=== PATIENT | female | born 1965 | race Hispanic/Latino ===

== ENCOUNTER 2019-01-22 18:21 | Emergency (ER) | payer BC ==
[~2019-01-22] VITALS: Ht 157.5 cm; Wt 88.0 kg
--- OUTSIDE RECORDS SUMMARY | 2019-01-22 18:24 | XMS REPORT ---
Author Author [facility] Address Unknown Phone Unavailable Care Team Providers Care Kindergarten Instructional Assistant Name Role Phone ESTELLA RUDI TORREZ Unavailable Unavailable DAVE ALEXANDER Unavailable Unavailable OFORDEMEMIKE Unavailable Unavailable Alexandria TOM Unavailable Unavailable Problems This patient has no known problems. Allergies, Adverse Reactions, Alerts This patient has no known allergies or adverse reactions. Medications This patient has no known medications. Encounters Start Date/Time End Date/Time Encounter Type Admission Type Attending Clinicians Care Facility Care Department Encounter ID 2018-05-30 15:27:00 2018-05-30 15:27:00 Outpatient [facility] [id number] 2018-05-12 15:36:00 2018-05-12 15:36:00 Outpatient [facility] 7514 Results Test Description Test Time Test Comments Text Results Atomic Results Result Comments U/S, PELVIS 2017-12-26 00:37:00 Reason for exam:->LLQ painReason for exam:->post menopausal vag bleeding FINAL REPORT U/S, PELVIS, U/S, ENDOVAGINAL (EV), U/S, DUPLEX, DOPPLER CLINICAL INDICATION: LLQ painpost menopausal vag bleeding COMPARISON: None TECHNIQUE: Ultrasound imaging of the pelvis was performed transabdominally through a distended urinary bladder followed by transvaginal examination postvoid. Color and spectral Doppler evaluation was also performed. FINDINGS: Uterus Orientation: Anteverted Size: 7.1 x 5.2 x 6.3 cm Masses: None Endometrial thickness: 0.8 cm. Cervix: Not well seen. Adnexa: Right Ovary:Not identified. Left Ovary: Size: 1.7 x 2.0 x 1.5 cm.cm. Echogenicity: Normal. There is a 2.4 x 1.0 x 1.6 cm paraovarian simple cyst. Vascular flow: Preserved Free fluid: None. Additional findings: None IMPRESSION: Endometrial complex is thickened measuring up to 0.8 cm. Recommend further evaluation with endometrial sampling in this postmenopausal patient with vaginal bleeding. Simple left paraovarian cyst measuring up to 2.4 cm. Recommend follow-up ultrasound in one year to ensure stability. Signed: Gallo Ayala Verified Date/Time: 12/26/2017 00:37:52 Reading Location: [address] Transitional Reading Room U/S, ENDOVAGINAL (EV) 2017-12-26 00:37:00 Reason for exam:->post menopausal bleedReason for exam:->LLQ pain FINAL REPORT U/S, PELVIS, U/S, ENDOVAGINAL (EV), U/S, DUPLEX, DOPPLER CLINICAL INDICATION: LLQ painpost menopausal vag bleeding COMPARISON: None TECHNIQUE: Ultrasound imaging of the pelvis was performed transabdominally through a distended urinary bladder followed by transvaginal examination postvoid. Color and spectral Doppler evaluation was also performed. FINDINGS: Uterus Orientation: Anteverted Size: 7.1 x 5.2 x 6.3 cm Masses: None Endometrial thickness: 0.8 cm. Cervix: Not well seen. Adnexa: Right Ovary:Not identified. Left Ovary: Size: 1.7 x 2.0 x 1.5 cm.cm. Echogenicity: Normal. There is a 2.4 x 1.0 x 1.6 cm paraovarian simple cyst. Vascular flow: Preserved Free fluid: None. Additional findings: None IMPRESSION: Endometrial complex is thickened measuring up to 0.8 cm. Recommend further evaluation with endometrial sampling in this postmenopausal patient with vaginal bleeding. Simple left paraovarian cyst measuring up to 2.4 cm. Recommend follow-up ultrasound in one year to ensure stability. Signed: Gallo Ayala Verified Date/Time: 12/26/2017 00:37:52 Reading Location: [address] Transitional Reading Room U/S, DUPLEX, DOPPLER 2017-12-26 00:37:00 Reason for exam:->llq painReason for exam:->post menopausal bleed FINAL REPORT U/S, PELVIS, U/S, ENDOVAGINAL (EV), U/S, DUPLEX, DOPPLER CLINICAL INDICATION: LLQ painpost menopausal vag bleeding COMPARISON: None TECHNIQUE: Ultrasound imaging of the pelvis was performed transabdominally through a distended urinary bladder followed by transvaginal examination postvoid. Color and spectral Doppler evaluation was also performed. FINDINGS: Uterus Orientation: Anteverted Size: 7.1 x 5.2 x 6.3 cm Masses: None Endometrial thickness: 0.8 cm. Cervix: Not well seen. Adnexa: Right Ovary:Not identified. Left Ovary: Size: 1.7 x 2.0 x 1.5 cm.cm. Echogenicity: Normal. There is a 2.4 x 1.0 x 1.6 cm paraovarian simple cyst. Vascular flow: Preserved Free fluid: None. Additional findings: None IMPRESSION: Endometrial complex is thickened measuring up to 0.8 cm. Recommend further evaluation with endometrial sampling in this postmenopausal patient with vaginal bleeding. Simple left paraovarian cyst measuring up to 2.4 cm. Recommend follow-up ultrasound in one year to ensure stability. Signed: Gallo Ayala Verified Date/Time: 12/26/2017 00:37:52 Reading Location: [address] Transitional Reading Room C METABOLIC PANEL 2017-12-25 22:54:00 SODIUM (BEAKER) (test brhd=358) 140 meq/L 136-145 POTASSIUM (BEAKER) (test onqv=830) 3.9 meq/L 3.5-5.1 Specimen slightly hemolyzed CHLORIDE (BEAKER) (test lhzb=112) 108 meq/L 98-107 CO2 (BEAKER) (test mtqa=732) 25 meq/L 22-29 BLOOD UREA NITROGEN (BEAKER) (test gukl=013) 19 mg/dL 7-21 CREATININE (BEAKER) (test pqbb=554) 0.75 mg/dL 0.57-1.25 Specimen slightly hemolyzed GLUCOSE RANDOM (BEAKER) (test hmpl=975) 112 mg/dL 70-105 CALCIUM (BEAKER) (test nprt=135) 9.3 mg/dL 8.4-10.2 EGFR (BEAKER) (test dqzn=8016) 81 mL/min/1.73 sq m ESTIMATED GFR IS NOT ACCURATE CREATININE CLEARANCE IN PREDICTING GLOMERULAR FILTRATION RATE. ESTIMATED GFR IS NOT APPLICABLE FOR DIALYSIS PATIENTS. RAPID STREP A [id number] 22:48:00* Test Item Value Reference Range Comments STREP A ANTIGEN (BEAKER) (test fuxr=880) Negative Negative CBC W/PLT COUNT & AUTO [id number] 22:44:00* Test Item Value Reference Range Comments WHITE BLOOD CELL COUNT (BEAKER) (test ngwu=975) 7.7 K/ L 3.5-10.5 RED BLOOD CELL COUNT (BEAKER) (test djxz=181) 4.19 M/ L 3.93-5.22 HEMOGLOBIN (BEAKER) (test gcjc=048) 14.3 GM/DL 11.2-15.7 HEMATOCRIT (BEAKER) (test jffe=172) 41.6 % 34.1-44.9 MEAN CORPUSCULAR VOLUME (BEAKER) (test iiaz=795) 99.3 fL 79.4-94.8 MEAN CORPUSCULAR HEMOGLOBIN (BEAKER) (test dvue=631) 34.1 pg 25.6-32.2 MEAN CORPUSCULAR HEMOGLOBIN CONC (BEAKER) (test bsso=607) 34.4 GM/DL 32.2-35.5 RED CELL DISTRIBUTION WIDTH (BEAKER) (test dzrj=132) 12.3 % 11.7-14.4 PLATELET COUNT (BEAKER) (test vtgm=807) 164 K/CU MM 150-450 MEAN PLATELET VOLUME (BEAKER) (test wlwv=692) 12.8 fL 9.4-12.3 NUCLEATED RED BLOOD CELLS (BEAKER) (test ggeb=163) 0 /100 WBC 0-0 NEUTROPHILS RELATIVE PERCENT (BEAKER) (test ahzc=977) 45 % LYMPHOCYTES RELATIVE PERCENT (BEAKER) (test gphm=431) 48 % MONOCYTES RELATIVE PERCENT (BEAKER) (test vbro=221) 6 % EOSINOPHILS RELATIVE PERCENT (BEAKER) (test qflp=203) 2 % BASOPHILS RELATIVE PERCENT (BEAKER) (test cznx=409) 1 % NEUTROPHILS ABSOLUTE COUNT (BEAKER) (test pwoc=416) 3.42 K/ L 1.56-6.13 LYMPHOCYTES ABSOLUTE COUNT (BEAKER) (test nnsc=843) 3.64 K/ L 1.18-3.74 MONOCYTES ABSOLUTE COUNT (BEAKER) (test cmlu=693) 0.43 K/ L 0.24-0.36 EOSINOPHILS ABSOLUTE COUNT (BEAKER) (test wjyb=210) 0.12 K/ L 0.04-0.36 BASOPHILS ABSOLUTE COUNT (BEAKER) (test nsvl=523) 0.04 K/ L 0.01-0.08 IMMATURE GRANULOCYTES-RELATIVE PERCENT (BEAKER) (test npyb=6174) 0 % 0-1 SCREEN, [id number] 22:12:00* Test Item Value Reference Range Comments TEST URINE (BEAKER) (test mqtp=870) Negative CT, BRAIN, WITHOUT [id number] 22:09:00Reason for exam:->HEADACHEReason for exam:->SORE THROATFINAL REPORT CT Head without contrast CLINICAL HISTORY: Headache, acute, norm neuro examHEADACHESORE THROAT TECHNIQUE: Contiguous axial images through the head without contrast. This exam was performed according to the departmental dose optimization program which includes automated exposure control, adjustment of the mA and/or kV according to the patient size, and/or use of an iterative reconstruction technique. COMPARISON: CT head dated 06/04/2017. FINDINGS:Examination is limited by extensive streak artifact from embolization material along the left lateral temporal region. There is no CT evidence of acute infarct or intracranial hemorrhage. Ventricles are normal in size and configuration. There is no hydrocephalus, midline shift, or apparent mass effect. Basilar cisterns are patent. There are no extra-axial fluid collections. The skull is intact. The visualized paranasal sinuses are well-aerated. Intraorbital contents are unremarkable. IMPRESSION: No CT evidence of acute infarct, hemorrhage, or hydr ocephalus. Examination is limited by extensive streak artifact from embolization material along the left lateral temporal region. Signed: Gallo Ayala Verified Date/Time: 12/25/2017 22:09:31 Reading Location: [facility] C013T [facility] Reading Room ALYSIS W/ REFLEX URINE [id number] 21:53:00* Test Item Value Reference Range Comments COLOR (BEAKER) (test tdam=609) Light Yellow CLARITY (BEAKER) (test wmry=311) Clear SPECIFIC GRAVITY UA (BEAKER) (test orkp=375) 1.015 1.001-1.035 PH UA (BEAKER) (test lgco=835) 5.5 5.0-8.0 PROTEIN UA (BEAKER) (test vvdp=073) Negative Negative GLUCOSE UA (BEAKER) (test tpms=063) Negative Negative KETONES UA (BEAKER) (test piws=776) Negative Negative BILIRUBIN UA (BEAKER) (test cccy=418) Negative Negative BLOOD UA (BEAKER) (test viap=929) Negative Negative NITRITE UA (BEAKER) (test auka=052) Negative Negative LEUKOCYTE ESTERASE UA (BEAKER) (test dzqa=311) Negative Negative UROBILINOGEN UA (BEAKER) (test pkvk=904) 0.2 mg/dL 0.2-1.0 RBC UA (BEAKER) (test zpfz=254) 1 /HPF WBC UA (BEAKER) (test cply=888) < /HPF SQUAMOUS EPITHELIAL (BEAKER) (test zqub=734) < /HPF CRYSTALS, URINE (BEAKER) (test eror=9309) Rare SOURCE(BEAKER) (test ckgg=8283) CT, CTANGIO [id number] 03:35:00FINAL REPORT CT, CTANGIO BRAINBRAIN CT WITHOUT CONTRAST 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 3-D volumetric reformatted images were created at a dedicated workstation. Precontrast images of the brain were also obtained. Stenosis evaluation reported in compliance with NASCET criteria. DOSE REDUCTION: Dose modulation, iterative reconstruction, and/or weight-based adjustment of the mA/kV was utilized to reduce the radiation dose to as low as reasonably achievable. FINDINGS:NECT BRAIN:The exam is slightly limited due to extensive streak artifact from embolization material along the left lateral tentorial re gion.Posterior fossa structures are normal limits.No subacute territorial infarc tion or hyperdense thrombus.No acute intracranial hemorrhage.No acute hydrocepha mike. No calvarial fracture.Symmetric globes.The paranasal sinuses and mastoid ai r cells are well aerated. 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 There is also redemonstration of a tiny cave rnous segment right ICA aneurysm. No new or enlarging aneurysms identified. No l arge vessel occlusion or flow-limiting stenosis within the anterior circulation. No flow limiting stenosis, dissection, or aneurysm of the posterior circulation. Major venous sinuses opacify normally on this suboptimal exam for these structur es. IMPRESSION:No acute intracranial abnormality 4. Extensive artifact from embo lization material along the left lateral tentorium.Stable tiny 2 mm right ICA an eurysms as detailed above. These are stable since 2010. Signed: Annmarie Crook MDReport Verified Date/Time: 06/04/2017 03:35:01 Reading Location: [place] [id number] Ortho Consult Reading Room C METABOLIC [id number] 02:14:00* Test Item Value Reference Range Comments SODIUM (BEAKER) (test mukv=854) 141 meq/L 136-145 POTASSIUM (BEAKER) (test smel=677) 3.7 meq/L 3.5-5.1 CHLORIDE (BEAKER) (test uwrg=639) 109 meq/L 98-107 CO2 (BEAKER) (test yqtt=978) 23 meq/L 22-29 BLOOD UREA NITROGEN (BEAKER) (test arnn=385) 15 mg/dL 7-21 CREATININE (BEAKER) (test giyl=366) 0.61 mg/dL 0.57-1.25 GLUCOSE RANDOM (BEAKER) (test qmah=715) 110 mg/dL 70-105 CALCIUM (BEAKER) (test rqlm=424) 9.4 mg/dL 8.4-10.2 EGFR (BEAKER) (test obso=6586) 103 mL/min/1.73 sq m ESTIMATED GFR IS NOT ACCURATE CREATININE CLEARANCE IN PREDICTING GLOMERULAR FILTRATION RATE. ESTIMATED GFR IS NOT APPLICABLE FOR DIALYSIS PATIENTS. CBC (HEMOGRAM ONLY)2017-06-04 01:49:00* Test Item Value Reference Range Comments WHITE BLOOD CELL COUNT (BEAKER) (test qxsp=048) 7.4 K/ L 3.5-10.5 RED BLOOD CELL COUNT (BEAKER) (test heks=300) 4.55 M/ L 3.93-5.22 HEMOGLOBIN (BEAKER) (test otwz=898) 14.7 GM/DL 11.2-15.7 HEMATOCRIT (BEAKER) (test rqgu=096) 43.5 % 34.1-44.9 MEAN CORPUSCULAR VOLUME (BEAKER) (test texh=712) 95.6 fL 79.4-94.8 MEAN CORPUSCULAR HEMOGLOBIN (BEAKER) (test xcpq=926) 32.3 pg 25.6-32.2 MEAN CORPUSCULAR HEMOGLOBIN CONC (BEAKER) (test xemb=188) 33.8 GM/DL 32.2-35.5 RED CELL DISTRIBUTION WIDTH (BEAKER) (test nhfi=427) 12.1 % 11.7-14.4 PLATELET COUNT (BEAKER) (test cshc=413) 182 K/CU MM 150-450 MEAN PLATELET VOLUME (BEAKER) (test bdwl=189) 13.3 fL 9.4-12.3 NUCLEATED RED BLOOD CELLS (BEAKER) (test npaw=024) 0 /100 WBC 0-0 CT, [id number] 22:21:00Reason for exam:->ABDOMINAL PAINsince 12 pmReason for exam:->EMESISWhat is the patient's sedation requirement?->No SedationIs the patient ?->NoFINAL REPORT CT, ABDOMEN \T\ PELVIS, WITH IV CONTRAST INDICATION: LLQ pain, suspect diverticulitisABDOMINAL PAINEMESIS COMPARISON: 09/06/16 TECHNIQUE:Post contrast abdomen and pelvis CT. Coronal and sagittal reformatted images obtained. DOSE REDUCTION: Dose modulation, iterative reconstruction, and/or weight-based adjustment of the mA/kV was utilized to reduce the radiation dose to as low as reasonably achievable. FINDINGS: Lower thorax: Visible airspaces clear. No effusion. Liver: Stable hepatomegaly and steatosis.Gallbladder and biliary tree: No ductal dilation or stones. Post cholecystectomy.Pancreas: No acute findings.Spleen: No acute findingsAdrenal Glands: No acute findings.Kidneys and ureters: No hydronephrosis or nephrolithiasis.Bladder and reproductive organs: Unremarkable. Stomach and Duodenum: No significant findings.Small and large intestine: Normal calibers. Fluid content without dilation.Appendix: Normal. Major vascular structures: Normal aortic caliber.Peritoneum and retroperitoneum: No free air, fluid or adenopathy. Skeleton: No acute bony abnormality.Additional findings: None. IMPRESSION: No diverticular disease. No bowel obstruction. F luid content in the small and large bowel suggesting diarrheal illness likely re flect infectious/inflammatory enteritis. Stable hepatomegaly and steatosis. Sign ed: JR Av, Mayra HENRIQUEZepjenny Verified Date/Time: 02/25/2017 22:21:58 R eading Location: [facility] B1 C013Y CT Body Reading Room C METABOLIC [id number] 21:11:00* Test Item Value Reference Range Comments SODIUM (BEAKER) (test xhfi=612) 144 meq/L 135-148 POTASSIUM (BEAKER) (test zubd=102) 3.8 meq/L 3.6-5.5 CHLORIDE (BEAKER) (test rtwm=353) 102 meq/L 98-106 CO2 (BEAKER) (test cjyu=912) 27 meq/L 24-32 BLOOD UREA NITROGEN (BEAKER) (test fchf=625) 12 mg/dL 10-26 CREATININE (BEAKER) (test ourj=661) 0.45 mg/dL 0.50-1.20 GLUCOSE RANDOM (BEAKER) (test mwob=625) 133 mg/dL 70-110 CALCIUM (BEAKER) (test trhi=732) 9.4 mg/dL 8.5-10.5 EGFR (BEAKER) (test vkqo=4064) 147 mL/min/1.73 sq m ESTIMATED GFR IS NOT ACCURATE CREATININE CLEARANCE IN PREDICTING GLOMERULAR FILTRATION RATE. ESTIMATED GFR IS NOT APPLICABLE FOR DIALYSIS PATIENTS. HEPATIC FUNCTION [id number] 21:10:00* Test Item Value Reference Range Comments TOTAL PROTEIN (BEAKER) (test biyl=957) 7.7 gm/dL 6.0-8.5 ALBUMIN (BEAKER) (test sjvy=1354) 4.4 g/dL 3.5-5.0 BILIRUBIN TOTAL (BEAKER) (test belv=147) 1.1 mg/dL 0.1-1.2 BILIRUBIN DIRECT (BEAKER) (test kyjw=487) 0.4 mg/dL 0.0-0.4 ALKALINE PHOSPHATASE (BEAKER) (test ezpm=969) 106 U/L 30-115 AST (SGOT) (BEAKER) (test xose=338) 62 U/L 5-40 ALT (SGPT) (BEAKER) (test yxgn=495) 85 U/L 5-50 [id number] 21:10:00* Test Item Value Reference Range Comments LIPASE (BEAKER) (test sbim=658) 55 U/L 40-240 URINALYSIS W/ [id number] 21:00:00* Test Item Value Reference Range Comments COLOR (BEAKER) (test adgp=403) Dark Yellow CLARITY (BEAKER) (test zkuy=608) Clear SPECIFIC GRAVITY UA (BEAKER) (test djyr=166) 1.020 1.001-1.035 PH UA (BEAKER) (test gzet=429) 6.0 5.0-8.0 PROTEIN UA (BEAKER) (test tdyd=134) Negative Negative GLUCOSE UA (BEAKER) (test ioho=395) Negative Negative KETONES UA (BEAKER) (test wocg=632) Trace Negative BILIRUBIN UA (BEAKER) (test selu=363) Negative Negative BLOOD UA (BEAKER) (test qyks=184) Trace Negative NITRITE UA (BEAKER) (test cljo=311) Negative Negative LEUKOCYTE ESTERASE UA (BEAKER) (test wwxa=964) Negative Negative UROBILINOGEN UA (BEAKER) (test dhri=046) 0.2 mg/dL 0.2-1.0 BACTERIA (BEAKER) (test cqrf=199) Occasional MUCUS (BEAKER) (test ytto=6101) Moderate RBC UA-MANUAL (BEAKER) (test rjqo=4442) <5 /HPF WBC UA-MANUAL (BEAKER) (test aufe=6847) <5 /HPF SQUAMOUS EPITHELIAL MANUAL (BEAKER) (test djis=1768) <5 /HPF SOURCE(BEAKER) (test csez=1357) CBC W/PLT COUNT & AUTO [id number] 20:56:00* Test Item Value Reference Range Comments WHITE BLOOD CELL COUNT (BEAKER) (test teek=413) 9.0 10e3/ L 4.0-10.0 RED BLOOD CELL COUNT (BEAKER) (test pckc=028) 4.79 10e6/ L 4.00-5.00 HEMOGLOBIN (BEAKER) (test zcrd=393) 15.6 g/dL 12.0-15.0 HEMATOCRIT (BEAKER) (test xhtr=398) 45.9 % 36.0-45.0 MEAN CORPUSCULAR VOLUME (BEAKER) (test ghns=600) 95.9 fL 82.0-99.0 MEAN CORPUSCULAR HEMOGLOBIN (BEAKER) (test pmzn=897) 32.5 pg 27.0-33.0 MEAN CORPUSCULAR HEMOGLOBIN CONC (BEAKER) (test oagt=811) 33.9 g/dL 32.0-36.0 RED CELL DISTRIBUTION WIDTH (BEAKER) (test vacg=861) 10.8 % 10.3-14.2 PLATELET COUNT (BEAKER) (test ljke=422) 173 10e3/ L 150-430 MEAN PLATELET VOLUME (BEAKER) (test iopo=168) 9.3 fL 6.5-10.5 NEUTROPHILS RELATIVE PERCENT (BEAKER) (test hmgz=313) 80 % LYMPHOCYTES RELATIVE PERCENT (BEAKER) (test gbvp=050) 14 % MONOCYTES RELATIVE PERCENT (BEAKER) (test wfji=872) 5 % EOSINOPHILS RELATIVE PERCENT (BEAKER) (test ayyj=712) 1 % BASOPHILS RELATIVE PERCENT (BEAKER) (test qhiw=643) 1 % NEUTROPHILS ABSOLUTE COUNT (BEAKER) (test hird=559) 7.18 10e3/ L 1.80-8.00 LYMPHOCYTES ABSOLUTE COUNT (BEAKER) (test many=571) 1.22 10e3/ L 1.48-4.50 MONOCYTES ABSOLUTE COUNT (BEAKER) (test qjie=320) 0.40 10e3/ L 0.00-1.30 EOSINOPHILS ABSOLUTE COUNT (BEAKER) (test xapm=042) 0.13 10e3/ L 0.00-0.50 BASOPHILS ABSOLUTE COUNT (BEAKER) (test imnn=838) 0.04 10e3/ L 0.00-0.20 SCREEN, [id number] 18:37:00* Test Item Value Reference Range Comments TEST URINE (BEAKER) (test xobl=232) Negative URINALYSIS W/ [id number] 18:32:00* Test Item Value Reference Range Comments COLOR (BEAKER) (test nlke=481) Yellow CLARITY (BEAKER) (test axod=898) Clear SPECIFIC GRAVITY UA (BEAKER) (test etpf=491) 1.010 1.001-1.035 PH UA (BEAKER) (test ersn=573) 5.0 5.0-8.0 PROTEIN UA (BEAKER) (test tvsr=395) Negative Negative GLUCOSE UA (BEAKER) (test siey=630) Negative Negative KETONES UA (BEAKER) (test dgzs=813) Negative Negative BILIRUBIN UA (BEAKER) (test ayko=338) Negative Negative BLOOD UA (BEAKER) (test mtps=321) Negative Negative NITRITE UA (BEAKER) (test lthv=204) Negative Negative LEUKOCYTE ESTERASE UA (BEAKER) (test cjcf=377) Negative Negative UROBILINOGEN UA (BEAKER) (test cwbx=966) 0.2 mg/dL 0.2-1.0 BACTERIA (BEAKER) (test ufay=026) Rare RBC UA-MANUAL (BEAKER) (test eacw=7139) None Seen /HPF WBC UA-MANUAL (BEAKER) (test bowj=8326) <5 /HPF SQUAMOUS EPITHELIAL MANUAL (BEAKER) (test elyn=9325) <5 /HPF SOURCE(BEAKER) (test fdbn=9521) BASIC METABOLIC [id number] 18:31:00* Test Item Value Reference Range Comments SODIUM (BEAKER) (test qonk=901) 139 meq/L 135-148 POTASSIUM (BEAKER) (test flkn=147) 4.0 meq/L 3.6-5.5 CHLORIDE (BEAKER) (test edgm=388) 101 meq/L 98-106 CO2 (BEAKER) (test hvst=834) 27 meq/L 24-32 BLOOD UREA NITROGEN (BEAKER) (test yyaz=555) 7 mg/dL 10-26 CREATININE (BEAKER) (test ubji=912) 0.48 mg/dL 0.50-1.20 GLUCOSE RANDOM (BEAKER) (test ocer=213) 94 mg/dL 70-110 CALCIUM (BEAKER) (test wcvu=514) 9.2 mg/dL 8.5-10.5 EGFR (BEAKER) (test hiea=6287) 137 mL/min/1.73 sq m ESTIMATED GFR IS NOT ACCURATE CREATININE CLEARANCE IN PREDICTING GLOMERULAR FILTRATION RATE. ESTIMATED GFR IS NOT APPLICABLE FOR DIALYSIS PATIENTS. ALKALINE [id number] 18:30:00* Test Item Value Reference Range Comments ALKALINE PHOSPHATASE (BEAKER) (test eazh=355) 92 U/L 30-115 AST (SGOT)2016-09-06 18:30:00* Test Item Value Reference Range Comments AST (SGOT) (BEAKER) (test lmhp=120) 35 U/L 5-40 ALT (SGPT)2016-09-06 18:30:00* Test Item Value Reference Range Comments ALT (SGPT) (BEAKER) (test fngo=717) 40 U/L 5-50 [id number] 18:30:00* Test Item Value Reference Range Comments AMYLASE (BEAKER) (test ltmk=570) 48 U/L 30-110 [id number] 18:30:00* Test Item Value Reference Range Comments LIPASE (BEAKER) (test bubl=454) 32 U/L 40-240 CBC W/PLT COUNT & AUTO [id number] 18:23:00* Test Item Value Reference Range Comments WHITE BLOOD CELL COUNT (BEAKER) (test kpad=425) 8.2 10e3/ L 4.0-10.0 RED BLOOD CELL COUNT (BEAKER) (test irkx=720) 4.37 10e6/ L 4.00-5.00 HEMOGLOBIN (BEAKER) (test onhf=698) 14.5 g/dL 12.0-15.0 HEMATOCRIT (BEAKER) (test qggo=557) 42.4 % 36.0-45.0 MEAN CORPUSCULAR VOLUME (BEAKER) (test jbvw=567) 97.1 fL 82.0-99.0 MEAN CORPUSCULAR HEMOGLOBIN (BEAKER) (test hswx=991) 33.3 pg 27.0-33.0 MEAN CORPUSCULAR HEMOGLOBIN CONC (BEAKER) (test tklm=578) 34.3 g/dL 32.0-36.0 RED CELL DISTRIBUTION WIDTH (BEAKER) (test nkks=890) 11.3 % 10.3-14.2 PLATELET COUNT (BEAKER) (test nspw=902) 181 10e3/ L 150-430 MEAN PLATELET VOLUME (BEAKER) (test oapo=542) 9.7 fL 6.5-10.5 NEUTROPHILS RELATIVE PERCENT (BEAKER) (test rbzh=715) 51 % LYMPHOCYTES RELATIVE PERCENT (BEAKER) (test rrsk=663) 41 % MONOCYTES RELATIVE PERCENT (BEAKER) (test oale=158) 6 % EOSINOPHILS RELATIVE PERCENT (BEAKER) (test wzpa=588) 2 % BASOPHILS RELATIVE PERCENT (BEAKER) (test idun=619) 1 % NEUTROPHILS ABSOLUTE COUNT (BEAKER) (test uvww=592) 4.16 10e3/ L 1.80-8.00 LYMPHOCYTES ABSOLUTE COUNT (BEAKER) (test ranq=819) 3.35 10e3/ L 1.48-4.50 MONOCYTES ABSOLUTE COUNT (BEAKER) (test modf=457) 0.48 10e3/ L 0.00-1.30 EOSINOPHILS ABSOLUTE COUNT (BEAKER) (test omcp=406) 0.13 10e3/ L 0.00-0.50 BASOPHILS ABSOLUTE COUNT (BEAKER) (test lcbz=261) 0.04 10e3/ L 0.00-0.20
[2019-01-22 19:27] LABS: BILIRUBIN,URINE NEGATIVE (NEGATIVE); CLARITY,URINE SL CLOUDY (CLEAR); COLOR,URINE YELLOW (YELLOW); KETONES,URINE NEGATIVE (NEGATIVE); LEUKOCYTE ESTERASE ,URINE MODERATE (NEGATIVE); NITRITE,URINE NEGATIVE (NEGATIVE); PREGNANCY TEST, URINE NEGATIVE (NEGATIVE); PROTEIN,URINE DIPSTICK NEGATIVE (NEGATIVE); URINE UROBILINOGEN 0.2 mg/dL (0.2 - 1)
[2019-01-22 19:48] LABS: BACTERIA,URINE MODERATE /HPF; EPITHELIAL CELLS,URINE MODERATE /LPF
[2019-01-22 21:04] LABS: BASOPHILS % 0.2 % (0.0-1.0); EOSINOPHILS # (AUTO) 0.1 (0.0-0.4); EOSINOPHILS % 1.2 % (0.0-6.0); HEMATOCRIT 45.9 % (34.2-44.1); HEMOGLOBIN 15.6 g/dL (12.0-16.0); LYMPHOCYTES # (AUTO) 3.3 (1.0-3.2); MEAN CORPUSCULAR HEMOGLOBIN 32.9 pg (28-32); MEAN CORPUSCULAR VOLUME 96.8 fL (81-99); MONOCYTES # (AUTO) 0.4 (0.2-0.8); MONOCYTES % 5.3 % (4.4-11.3); NEUTROPHILS # (AUTO) 4.2 (2.1-6.9); NEUTROPHILS % 52.1 % (38.7-80.0); PLATELET COUNT 177 x10e3/uL (140-360); RED BLOOD COUNT 4.74 x10e6/uL (3.6-5.1); RED CELL DISTRIBUTION WIDTH 11.9 % (11.7-14.4)
[2019-01-22] MEDS ORDERED: DIATRIZOATE MEGL/DIATRIZOA SOD 30 ML BTL PO ONE (21:06)
[2019-01-22 22:27] LABS: ALANINE AMINOTRANSFERASE 22 IU/L (0-55); ALBUMIN 4.4 g/dL (3.5-5.0); ALBUMIN/GLOBULIN RATIO 1.3 (0.8-2.0); ALKALINE PHOSPHATASE 76 IU/L (40-150); ANION GAP 12.6 mmol/L (8-16); BLOOD UREA NITROGEN 13 mg/dL (7-26); BUN/CREATININE RATIO 19 (6-25); CALCIUM 10.4 mg/dL (8.4-10.2); CARBON DIOXIDE 25 mmol/L (22-29); CHLORIDE 102 mmol/L (98-107); CREATININE, SERUM 0.69 mg/dL (0.57-1.11); EST GLOMERULAR FILTRATION RATE > 60 ML/MIN (60-); GLUCOSE 103 mg/dL (74-118); POTASSIUM 3.6 mmol/L (3.5-5.1); SODIUM 136 mmol/L (136-145)
[2019-01-22 22:28] LABS: AMYLASE 41 U/L (25-125); LIPASE 28 U/L (8-78)
[2019-01-22 22:45] LABS: CREATINE KINASE MB 1.4 ng/mL (0-5.0)
--- NOTE | 2019-01-22 23:27 | NUR ---
PT RETURNED TO ER FROM CT; PT REPORTS HIVES AND ITCHING TO LT UPPER ARM. HIVES NOTED TO LT UPPER ARM, CHEST AND BACK. PT DENIES SOB, CP OR TONGUE SWELLING. ER MD NOTIFIED AND AWARE. NAD NOTED AT THIS TIME.
[2019-01-22] MEDS ORDERED: DIPHENHYDRAMINE HCL INJ 50 MG/ML VIAL IV ONE (23:30)
--- NOTE | 2019-01-22 23:38 | Diagnostic Imaging Report ---
EXAM: CT Abdomen and Pelvis WITH contrast INDICATION: ^LLQ PAIND ^[id number] ^2300 ^Y COMPARISON: None. TECHNIQUE: Abdomen and pelvis were scanned utilizing a multidetector helical scanner from the lung base to the pubic symphysis after administration of IV contrast. Coronal and sagittal reformations were obtained. Dose modulation, iterative reconstruction, and/or weight based adjustment of the mA/kV was utilized to reduce the radiation dose to as low as reasonably achievable. Routine protocol was performed. Scan was performed when during portal venous phase. IV CONTRAST: 100 mL of Isovue-370 ORAL CONTRAST: Gastroview COMPLICATIONS: None RADIATION DOSE: Total DLP: 608.37 mGy*cm Estimated effective dose: (DLP x 0.015 x size factor) mSv CTDIvol has been reviewed. It is below the limits set by the Radiation Protocol Committee (RPC). FINDINGS: LINES and TUBES: None. LOWER THORAX: Unremarkable HEPATOBILIARY: No focal hepatic lesions. No biliary ductal dilation. GALLBLADDER: Surgically absent. SPLEEN: Borderline splenomegaly. PANCREAS: No focal masses or ductal dilatation. ADRENALS: No adrenal nodules KIDNEYS/URETERS: Kidneys enhance symmetrically. No hydronephrosis. No cystic or solid mass lesions. No stones. GI TRACT: No abnormal distention, wall thickening, or evidence of bowel obstruction. Appendix is normal. PELVIC ORGANS/BLADDER: Unremarkable. LYMPH NODES: No lymphadenopathy. VESSELS: Unremarkable. PERITONEUM / RETROPERITONEUM: No free air. Small amount of pelvic free fluid, likely physiologic. BONES: Unremarkable. SOFT TISSUES: Unremarkable. IMPRESSION: 1. No acute inflammatory process in the abdomen/pelvis. Signed by: Dr. João Grace MD on 01/22/2019 11:35 PM
--- NOTE | 2019-01-22 23:38 | Diagnostic Imaging Report ---
EXAMINATION: CHEST SINGLE (PORTABLE) INDICATION: ^CHEST PAIN ^[id number] ^2310 ^Y COMPARISON: None FINDINGS: AP view TUBES and LINES: None. LUNGS: Lungs are well inflated. There is no evidence of pneumonia or pulmonary edema. PLEURA: No pleural effusion or pneumothorax. HEART AND MEDIASTINUM: The cardiomediastinal silhouette is unremarkable. BONES AND SOFT TISSUES: No acute osseous lesion. Soft tissues are unremarkable. UPPER ABDOMEN: No free air under the diaphragm. IMPRESSION: No acute thoracic abnormality. Signed by: Dr. João Grace MD on 01/22/2019 11:35 PM
== END 2019-01-23 00:32 | disposition home or self-care (01) ==
LOC: ER 18:21
DX: R10.33 Periumbilical pain (principal); R10.32 Left lower quadrant pain; N30.91 Cystitis, unspecified with hematuria; N64.4 Mastodynia; M54.2 Cervicalgia
CPT/HCPCS: 36415; 71045; 74177; 80053; 81001; 81025; 82150; 82550; 82553; 83690; 84484; 85025; 93005; 99284; J1200

== ENCOUNTER 2020-01-11 19:38 | Observation (INO) | payer BC ==
[~2020-01-11] VITALS: Ht 157.5 cm; Wt 78.6 kg
[2020-01-11] MEDS ORDERED: FAMOTIDINE 20 MG/2 ML VIAL IV STA (20:07)
[2020-01-11] MEDS ORDERED: KETOROLAC TROMETHAMINE 30 MG/ML VIAL IV STA (20:07)
[2020-01-11] MEDS ORDERED: ONDANSETRON HCL INJ 2MG/ML 2ML 2 MG/ML VIAL IV STA (20:07)
[2020-01-11] MEDS ORDERED: SODIUM CHLORIDE 0.9% 1000ML 1,000 ML IV SCH (20:30)
[2020-01-11] MEDS ORDERED: DONNATAL/LIDOCAINE/MAALOX 30 ML SUSP PO ONE (20:30)
[2020-01-11] MEDS ORDERED: ONDANSETRON HCL INJ 2MG/ML 2ML 2 MG/ML VIAL ONE (20:34)
[2020-01-11] MEDS ORDERED: MAGNESIUM/ALUMINUM/SIMETHICONE 30 ML UDC ONE (20:34)
[2020-01-11] MEDS ORDERED: SODIUM CHLORIDE 0.9% 1000ML 1,000 ML ONE (20:34)
[2020-01-11] MEDS ORDERED: FAMOTIDINE 20 MG/2 ML VIAL IV ONE (20:34)
[2020-01-11] MEDS ORDERED: KETOROLAC TROMETHAMINE 30 MG/ML VIAL ONE (20:34)
[2020-01-11] MEDS ORDERED: BELLADONNA ALK/PHENOBARBITAL 5 ML UDC ONE (20:34)
[2020-01-11] MEDS ORDERED: LIDOCAINE VISC 2% SOLN 15 ML UDC ONE (20:34)
[2020-01-11] MEDS ORDERED: BELLADONNA ALK/PHENOBARBITAL 5 ML UDC PO ONE (20:45)
[2020-01-11] MEDS ORDERED: LIDOCAINE VISC 2% SOLN 15 ML UDC PO ONE (20:45)
[2020-01-11] MEDS ORDERED: MAGNESIUM/ALUMINUM/SIMETHICONE 30 ML UDC PO ONE (20:45)
--- NOTE | 2020-01-11 21:14 | Diagnostic Imaging Report ---
EXAM: CT Abdomen and Pelvis WITHOUT contrast INDICATION: ^abd pain, IV contrast allergy ^[id number] ^2019 COMPARISON: None. TECHNIQUE: Abdomen and pelvis were scanned utilizing a multidetector helical scanner from the lung base to the pubic symphysis without administration of IV contrast. Absence of intravenous contrast decreases sensitivity for detection of focal lesions and vascular pathology. Coronal and sagittal reformations were obtained. Routine protocol was performed. IV CONTRAST: None ORAL CONTRAST: None COMPLICATIONS: None RADIATION DOSE: Total DLP: 710 mGy*cm Estimated effective dose: (DLP x 0.015 x size factor) mSv CTDIvol has been reviewed. It is below the limits set by the Radiation Protocol Committee (RPC). Dose modulation, iterative reconstruction, and/or weight based adjustment of the mA/kV was utilized to reduce the radiation dose to as low as reasonably achievable. FINDINGS: LINES and TUBES: None. LOWER THORAX: Unremarkable HEPATOBILIARY: No focal hepatic lesions. No biliary ductal dilation. GALLBLADDER: No radio-opaque stones or sludge. No wall thickening. SPLEEN: No splenomegaly. PANCREAS: No focal masses or ductal dilatation. ADRENALS: No adrenal nodules KIDNEYS/URETERS: No hydronephrosis. No cystic or solid mass lesions. No stones. GI TRACT: There are multiple mildly dilated loops of small bowel measuring up to 3.1 cm with air-fluid levels. Otherwise no abnormal distention, wall thickening, or evidence of large bowel obstruction. There are diverticula within the colon without evidence of diverticulitis. Appendix is not clearly identified. There is however no fat stranding or adenopathy in the right lower quadrant to suggest appendicitis. PELVIC ORGANS/BLADDER: Unremarkable. LYMPH NODES: No lymphadenopathy. VESSELS: Unremarkable. PERITONEUM / RETROPERITONEUM: No free air or fluid. BONES: There are mild degenerative changes in the spine. SOFT TISSUES: Unremarkable. IMPRESSION: Mildly dilated loops of small bowel measuring up to 3.1 cm with air-fluid levels. Constellation of findings are highly suspicious for partial small bowel obstruction. No clear transition point identified. Signed by: Carlie Walters MD on 01/11/2020 9:10 PM
--- NOTE | 2020-01-11 22:43 | NUR ---
[facility] NOTIFIED OF TRANSFER, ETA 45
[2020-01-11] MEDS ORDERED: SODIUM CHLORIDE 0.9% 250ML IRRIG IR SCH (22:45)
[2020-01-12] VITALS (8 sets, daily range): BP systolic 103–117; BP diastolic 50–61
--- NOTE | 2020-01-12 00:25 | NUR ---
REPORT RECEIVED FROM JAY RN. PT ALERT AND ORIENTED X3.PT HAD BM YESTERDAY. PT HAS HX OF COLITIS. PT WAS ON CIPRO,FLAGYL AND COLACE. ABDOMINAL PAIN BECAME WORSE SO CAME TO HOPD. AFFEBRILE. SON COVID + AT HOME. PT IS COVID -. PIV 20 G RT AC. SITE HEALTHY. CALL LIGHT WITHIN REACH. PT NPO. BED IN LOW POSITION. PT ORIENTED TO HOURLY ROUNDING, UNIT, ROOM AND PMC. PT VERBALIZED UNDERSTANDING OF ORIENTATION.
[2020-01-12] MEDS: SODIUM CHLORIDE 0.9% 1000ML 1,000 ML IV SCH ×3 (00:59→22:27)
[2020-01-12] MEDS: ONDANSETRON HCL INJ 2MG/ML 2ML 2 MG/ML VIAL IV PRN ×3 (01:46→20:30)
[2020-01-12] MEDS: MORPHINE SULFATE INJ 4 MG/ML INJ 1ML IV PRN ×3 (02:08→20:30)
[2020-01-12 05:31] LABS: BASOPHILS % 0.2 % (0.0-1.0); EOSINOPHILS # (AUTO) 0.1 (0.0-0.4); EOSINOPHILS % 0.7 % (0.0-6.0); HEMATOCRIT 43.9 % (34.2-44.1); HEMOGLOBIN 15.1 g/dL (12.0-16.0); LYMPHOCYTES % 23.9 % (18.0-39.1); MEAN CORPUSCULAR HEMOGLOBIN 33.4 pg (28-32); MEAN CORPUSCULAR HGB CONC 34.4 g/dL (31-35); MEAN CORPUSCULAR VOLUME 97.1 fL (81-99); MONOCYTES # (AUTO) 0.4 (0.2-0.8); NEUTROPHILS # (AUTO) 5.9 (2.1-6.9); PLATELET COUNT 168 x10e3/uL (140-360); RED BLOOD COUNT 4.52 x10e6/uL (3.6-5.1); RED CELL DISTRIBUTION WIDTH 12.3 % (11.7-14.4)
[2020-01-12 05:49] LABS: ALANINE AMINOTRANSFERASE 22 IU/L (0-55); ALBUMIN 3.5 g/dL (3.5-5.0); ALBUMIN/GLOBULIN RATIO 1.3 (0.8-2.0); ALKALINE PHOSPHATASE 68 IU/L (40-150); ANION GAP 10.2 mmol/L (8-16); BLOOD UREA NITROGEN 15 mg/dL (7-26); BUN/CREATININE RATIO 22 (6-25); CALCIUM 8.6 mg/dL (8.4-10.2); CARBON DIOXIDE 25 mmol/L (22-29); CHLORIDE 111 mmol/L (98-107); CREATININE, SERUM 0.69 mg/dL (0.57-1.11); EST GLOMERULAR FILTRATION RATE > 60 ML/MIN (60-); GLUCOSE 143 mg/dL (74-118); MAGNESIUM 2.1 MG/DL (1.3-2.1); POTASSIUM 4.2 mmol/L (3.5-5.1); SODIUM 142 mmol/L (136-145)
--- NOTE | 2020-01-12 06:32 | Emergency Department Note ---
History of Present Illnes History of Present Illness Chief Complaint: Abdominal Complaints History of Present Illness This is a 54 year old female with 8 days of abdominal pain. Sates abd pain is diffuse, worse epigastric. Similar pain a few years ago - saw GI and had CT that showed colitis. Saw PCP this episode on day of onset who prescribed flagyl and cipro to treat Colitis. Worse today. Vomiting X1 today after taking APAP. Last BM today normal. No melena/hematachezia, hematemesis, diarrhea, constipation. No dysuria/hematuria. No fever or chills. Quarantined with family member who has Covid. Patient's Covid tests have been negative. No cough, SOB, sore throat, runny nose, congestion, loss taste/smell. 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 Onset (how long ago): week(s) (1) Location: abdomen Quality: "bloated" Radiation: Reports non-radiation Severity: severe Onset quality: gradual Duration (how long): week(s) (1) Timing of current episode: intermittent Progression: worsening Context: Denies recent illness, Denies trauma/injury Relieving factors: none Exacerbating factors: none Associated symptoms: Denies chest pain, Denies cough, Denies diaphoresis, Denies fever/chills, Denies headaches, Denies loss of appetite, Denies malaise, Denies nausea/vomiting, Denies rash, Denies shortness of breath, Denies syncope, Denies weakness Past Medical/Family History Physician Review I have reviewed the patient's past medical and family history. Any updates have been documented here. Past Medical History Recent Fever: No Clinical Suspicion of Infectio: No New/Unexplained Change in Ment: No Past Medical History: None Other Medical History: colitis Past Surgical History: Cholecysctectomy Other Surgery: brain embolism Social History Smoking Cessation: Never Smoker Counseling Performed: No Alcohol Use: None Any Illegal Drug Use: No Physically hurt or threatened: No Other Last Tetanus: UTD Any Pre-Existing Lines (PICC,: No Review of Systems Review of Systems Constitutional: Denies chills, Denies fever EENTM: Denies nose congestion, Denies throat pain Cardiovascular: Denies chest pain Respiratory: Denies cough, Denies dyspnea Gastrointestinal: Reports abdominal pain, Reports nausea, Reports vomiting (X1); Denies constipation, Denies diarrhea Genitourinary: Denies dysuria, Denies frequency, Denies hematuria, Denies pain Musculoskeletal: Denies back pain Integumentary: Denies rash Neurological: Denies headache Endocrine: Denies increased thirst, Denies increased urination Hematological/Lymphatic: Denies easy bruising Physical Exam Related Data Allergies: Uncoded Allergies: IV CONTRAST (Adverse Reaction, Unknown, 01/22/19) HIVES Triage Vital Signs Vital Signs Date Time Temp Pulse Resp B/P (MAP) Pulse Ox O2 Delivery O2 Flow Rate FiO2 01/11/20 19:45 98.2 67 18 113/68 100 Room Air Vital signs reviewed: Yes Physical Exam CONSTITUTIONAL Constitutional: Present well-developed, Present well-nourished HENT HENT: Present normocephalic, Present atraumatic, Present oropharynx clear/moist, Present nose normal HENT L/R: Present left ext ear normal, Present right ext ear normal EYES Eyes: Reports PERRL, Reports conjunctivae normal NECK Neck: Present ROM normal PULMONARY Pulmonary: Present effort normal, Present breath sounds normal CARDIOVASCULAR Cardiovascular: Present regular rhythm, Present heart sounds normal, Present capillary refill normal, Present normal rate GASTROINTESTINAL Abdominal: Present bowel sounds normal, Present tender (diffuse, no psoas, illiac, rovsing's, aguillon's signs); Absent soft, Absent nontender, Absent guarding, Absent mass, Absent rebound, Absent left CVA tenderness, Absent right CVA tenderness GENITOURINARY Genitourinary: Absent exam deferred, Absent vagina normal, Absent uterus normal, Absent guaiac result, Absent vaginal discharge, Absent other SKIN Skin: Present other (healed laproscopic scars on abdomen); Absent rash MUSCULOSKELETAL Musculoskeletal: Absent edema NEUROLOGICAL Neurological: Present alert, Present oriented x 3 PSYCHOLOGICAL Psychological: Present mood/affect normal, Present judgement normal Results Laboratory Lab results reviewed: Yes Laboratory comments UA: trace Sea, Nit neg, blood neg, ket trace, glu neg, christine neg. WBC 12.3, HGB 17.3, HCT 53.6. LFTs/Consuelo WNL, BMP WNL. COVID negative. Imaging Imaging results reviewed: Yes Imaging Comments EXAM: CT Abdomen and Pelvis WITHOUT contrast INDICATION: ^abd pain, IV contrast allergy ^[id number] ^2019 COMPARISON: None. TECHNIQUE: Abdomen and pelvis were scanned utilizing a multidetector helical scanner from the lung base to the pubic symphysis without administration of IV contrast. Absence of intravenous contrast decreases sensitivity for detection of focal lesions and vascular pathology. Coronal and sagittal reformations were obtained. Routine protocol was performed. IV CONTRAST: None ORAL CONTRAST: None COMPLICATIONS: None RADIATION DOSE: Total DLP: 710 mGy*cm Estimated effective dose: (DLP x 0.015 x size factor) mSv CTDIvol has been reviewed. It is below the limits set by the Radiation Protocol Committee (RPC). Dose modulation, iterative reconstruction, and/or weight based adjustment of the mA/kV was utilized to reduce the radiation dose to as low as reasonably achievable. FINDINGS: LINES and TUBES: None. LOWER THORAX: Unremarkable HEPATOBILIARY: No focal hepatic lesions. No biliary ductal dilation. GALLBLADDER: No radio-opaque stones or sludge. No wall thickening. SPLEEN: No splenomegaly. PANCREAS: No focal masses or ductal dilatation. ADRENALS: No adrenal nodules KIDNEYS/URETERS: No hydronephrosis. No cystic or solid mass lesions. No stones. GI TRACT: There are multiple mildly dilated loops of small bowel measuring up to 3.1 cm with air-fluid levels. Otherwise no abnormal distention, wall thickening, or evidence of large bowel obstruction. There are diverticula within the colon without evidence of diverticulitis. Appendix is not clearly identified. There is however no fat stranding or adenopathy in the right lower quadrant to suggest appendicitis. PELVIC ORGANS/BLADDER: Unremarkable. LYMPH NODES: No lymphadenopathy. VESSELS: Unremarkable. PERITONEUM / RETROPERITONEUM: No free air or fluid. BONES: There are mild degenerative changes in the spine. SOFT TISSUES: Unremarkable. IMPRESSION: Mildly dilated loops of small bowel measuring up to 3.1 cm with air-fluid levels. Constellation of findings are highly suspicious for partial small bowel obstruction. No clear transition point identified. Assessment & Plan Medical Decision Making MDM Differential dx includes, but not limited to: AAA, renal colic/kidney stone, appendicitis, IBD, Chron's, UC, Colitis, UTI, Pyelonephritis, pancreatitis, SBO, Meckels's Reassessment Reassessment symptoms better. Ready to archana patient after CT results, but hospital required COVID test prior to admit due to fact patient PUI. Awaited COVID results prior to admission. Covid negative. Spoke with Dr. Ron who agreed to admit patient with surgery consult. 1048: Await return call from Dr. Alexandria Cornejo. 0630 No return call from Dr. Bess. Answering service called who will relay message of consult to Dr. Bess. Assessment & Plan Final Impression: (1) Abdominal pain (2) Small bowel obstruction, partial Depart Disposition: ADMITTED Last Vital Signs Date Time Temp Pulse Resp B/P (MAP) Pulse Ox O2 Delivery O2 Flow Rate FiO2 01/11/20 19:45 98.2 67 18 113/68 100 Room Air Medications in the ED Famotidine 20 mg NOW STAT IV ; Start 01/11/20 at 20:07; Stop 01/11/20 at 20:08; Status UNV Ketorolac Tromethamine 30 mg ONCE STAT IV ; Start 01/11/20 at 20:07; Stop 01/11/20 at 20:08; Status UNV Ondansetron HCl 4 mg NOW STAT IV ; Start 01/11/20 at 20:07; Stop 01/11/20 at 20:08; Status UNV VICTORINO LE MD Jan 11, 2020 20:19
--- NOTE | 2020-01-12 10:05 | NUR ---
OBS DAY 1 DX: PARTIAL SBO SURGERY CONSULT, NPO SENT TO R1 FOR LOC DETERMINATION
--- OUTSIDE RECORDS SUMMARY | 2020-01-12 10:17 | XMS REPORT | Continuity of Care Document ---
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 No abnormalities. Craniocervical junction: The foramen magnum is patent. No Chiari one malformation. Impression: Despite limitation, no large intraparenchymal or extra-axial hemorrhage or large acute territorial infarct in the visualized brain. Signed by: Dr. Rolf Day M.D. on 03/02/2019 4:20 PM Dictated By: ROLF VALDEZ MD 19 Transcribed By: IVONNE on 03/02/19 1620 COPY TO: VICTORINO LORENZO MD CHEST SINGLE (PORTABLE) 2019-01-22 23:35:00 [address] [place] [address] Patient Name: LUIS LUEVANO MR #: [id number] : 1965 Age/Sex: 53/F Req #: [id number] Adm Physician: Ordered by: IMKI OAKES MD Report #: [id number] Location: ER Room/Bed: Procedure: [id number] DX/CHEST SINGLE (PORTABLE) Exam Date: 01/22/19 Exam Time: 2309 REPORT STATUS: Signed EXAMINATION: CHEST SINGLE (PORTABLE) INDICATION: CHEST PAIN [id number] Y COMPARISON: None FINDINGS: AP view TUBES and LINES: None. LUNGS: Lungs are well inflated. There is no evidence of pneumonia or pulmonary edema. PLEURA: No pleural effusion or pneumothorax. HEART AND MEDIASTINUM: The cardiomediastinal silhouette is unremarkable. BONES AND SOFT TISSUES: No acute osseous lesion. Soft tissues are unremarkable. UPPER ABDOMEN: No free air under the diaphragm. IMPRESSION: No acute thoracic abnormality. Signed by: Dr. João rubio MD on 01/22/2019 11:35 PM Dictated By: JOÃO DAVISON MD 34 Transcribed By: IVONNE on 01/22/192334 COPY TO: MIKI OAKES MD CT ABDOMEN/PELVIS W 2019-01-22 23:27:00 [address] [place] [address] Patient Name: LUIS LUEVANO MR #: [id number] : 1965 Age/Sex: 53/F Req #: [id number] Adm Physician: Ordered by: MIKI OAKES MD Report #: [id number] Location: ER Room/Bed: Procedure: [id number] CT/CT ABDOMEN/PELVIS W Exam Date: 01/22/19 Exam Time: 2300 REPORT STATUS: Signed EXAM: CT Abdomen and Pelvis WITH contrast INDICATION: LLQ PAIND 20190122 Y COMPARISON: None. TECHNIQUE: Abdomen and pelvis were scanned utilizing a multidetector helical scanner from the lung base to the pubic symphysis after administration of IV contrast. Coronal and sagittal reformations were obtained. Dose modulation, iterative reconstruction, and/or weight based adjustment of the mA/kV was utilized to reduce the radiation dose to as low as reasonably achievable. Routine protocol was performed. Scan was performed when during portal venous phase. IV CONTRAST: 100 mL of Isovue-370 ORAL CONTRAST: Gastroview COMPLICATIONS: None RADIATION DOSE: Total DLP: 608.37 mGy*cm Estimated effective dose: (DLP x 0.015 x size factor) mSv CTDIvol has been reviewed. It is below the limits set by the Radiation Protocol Committee (RPC). FINDINGS: LINES and TUBES: None. LOWER THORAX: Unremarkable HEPATOBILIARY: No focal hepatic lesions. No biliary ductal dilation. GALLBLADDER: Surgically absent. SPLEEN: Borderline splenomegaly. PANCREAS: No focal masses or ductal dilatation. ADRENALS: No adrenal nodules KIDNEYS/URETERS: Kidneys enhance symmetrically. No hydronephrosis. No cystic or solid mass lesions. No stones. GI TRACT: No abnormal distention, wall thickening, or evidence of bowel obstruction. Appendix is normal. PELVIC ORGANS/BLADDER: Unremarkable. LYMPH NODES: No lymphadenopathy. VESSELS: Unremarkable. PERITONEUM / RETROPERITONEUM: No free air. Small a mount of pelvic free fluid, likely physiologic. BONES: Unremarkable. SOFT TISSUES: Unremarkable. IMPRESSION: 1. No acute inflammatory process in the abdomen/pelvis. Signed by: Dr. João Davison MD on 01/22/2019 11:35 PM Dictated By: JOÃO DAVISON MD 2393 Transcribed By: IVONNE on 01/22/19 4915 COPY TO: MIKI OAKES MD Creatine Kinase MB 2019-01-22 23:19:00 Test Item Creatine Kinase MB (test code = 82101-0) 1.40 0-5.0 [facility] [id number] 23:19:00* Test Item Value Reference Range Interpretation Comments Troponin I (test code = YCC1886) 0.019 0-0.300 [facility] CenterCreatine Kinase BH7970-55-04 23:19:00* Test Item Value Reference Range Interpretation Comments Creatine Kinase MB (test code = 19019-7) 1.40 0-5.0 [facility] CenterTropon U7077-29-74 23:19:00* Test Item Value Reference Range Interpretation Comments Troponin I (test code = SFG6384) 0.019 0-0.300 [facility] CenterCreatine Xdpxsa5089-43-28 22:39:00* Test Item Value Reference Range Interpretation Comments Creatine Kinase (test code = 2157-6) 124 29-168 [facility] CenterCreatine Kelolr1145-96-45 22:39:00* Test Item Value Reference Range Interpretation Comments Creatine Kinase (test code = 2157-6) 124 29-168 [facility] CenterAmylase Dffky1927-77-75 22:28:00* Test Item Value Reference Range Interpretation Comments Amylase Level (test code = 1798-8) 41 25-125 [facility] CenterLipase2019-12-02 22:28:00* Test Item Value Reference Range Interpretation Comments Lipase (test code = 3040-3) 78 [facility] CenterAm[facility] Ecjdg6304-38-11 22:28:00* Test Item Value Reference Range Interpretation Comments Amylase Level (test code = 1798-8) 41 25-125 [facility] CenterLipase2019-12-02 22:28:00* Test Item Value Reference Range Interpretation Comments Lipase (test code = 3040-3) 28 -78 [facility] Centerodium Jabzo1842-09-54 22:27:00* Test Item Value Reference Range Interpretation Comments Sodium Level (test code = 2951-2) 136 136-145 [facility] CenterPotassium Ebfqo3857-45-15 22:27:00* Test Item Value Reference Range Interpretation Comments Potassium Level (test code = 2823-3) 3.6 3.5-5.1 [facility] CenterChloride Twltu1104-49-33 22:27:00* Test Item Value Reference Range Interpretation Comments Chloride Level (test code = 2075-0) 102 98-107 [facility] CenterCarbon Dioxide Pofic0210-93-65 22:27:00* Test Item Value Reference Range Interpretation Comments Carbon Dioxide Level (test code = 2028-9) 25 22-29 [facility] CenterAnion Npa9150-86-64 22:27:00* Test Item Value Reference Range Interpretation Comments Anion Gap (test code = 35667-9) 12.6 8-16 [facility] CenterBlood Urea Ysymghmr6916-94-14 22:27:00* Test Item Value Reference Range Interpretation Comments Blood Urea Nitrogen (test code = 3094-0) 13 7-26 [facility] CenterCreatinine2019-12-02 22:27:00* Test Item Value Reference Range Interpretation Comments Creatinine (test code = 2160-0) 0.69 0.57-1.11 [facility] CenterBUN/Creatinine Hhprj1678-11-87 22:27:00* Test Item Value Reference Range Interpretation Comments BUN/Creatinine Ratio (test code = 3097-3) 19 6-25 [facility] CenterEstimat Glomerular Filtration Rate 2019-01-22 22:27:00* Test Item Value Reference Range Interpretation Comments Estimat Glomerular Filtration Rate (test code = 585724449) > 60 >60 Ranges were taken from the National Kidney Disease Education Program and the [facility] literature.Reference ranges:60 or greater: Xxsghz06-00 ( for 3 consecutive months): Chronic kidney disease 15 or less: Kidney failureBrooke Army Medical CenterGlucose Znjhv2243-15-44 22:27:00* Test Item Value Reference Range Interpretation Comments Glucose Level (test code = PKK8533) 103 74-118 [facility] CenterCalcium Eqxnd6553-39-75 22:27:00* Test Item Value Reference Range Interpretation Comments Calcium Level (test code = 59481-9) 10.4 8.4-10.2 H [facility] CenterTotal Yzmzcbuff4171-90-18 22:27:00* Test Item Value Reference Range Interpretation Comments Total Bilirubin (test code = 1975-2) 0.9 0.2-1.2 [facility] CenterAspartate Amino Transf (AST/SGOT) 2019-01-22 22:27:00* Test Item Value Reference Range Interpretation Comments Aspartate Amino Transf (AST/SGOT) (test code = Aspartate Amino Transf (AST/SGOT)) 19 5-34 [facility] CenterAlanine Aminotransferase (ALT/SGPT) 2019-01-22 22:27:00* Test Item Value Reference Range Interpretation Comments Alanine Aminotransferase (ALT/SGPT) (test code = 1742-6) 22 0-55 [facility] CenterTotal Ifvdzin4175-84-28 22:27:00* Test Item Value Reference Range Interpretation Comments Total Protein (test code = 2885-2) 7.7 6.5-8.1 [facility] CenterAlbumin2019-12-02 22:27:00* Test Item Value Reference Range Interpretation Comments Albumin (test code = 1751-7) 4.4 3.5-5.0 [facility] CenterGlobulin2019-12-02 22:27:00* Test Item Value Reference Range Interpretation Comments Globulin (test code = 78308-6) 3.3 2.3-3.5 [facility] CenterAlbumin/Globulin Pplzt8149-09-37 22:27:00 * Test Item Value Reference Range Interpretation Comments Albumin/Globulin Ratio (test code = 1759-0) 1.3 0.8-2.0 [facility] CenterAlkaline Tbmcpmlvrwp5735-95-41 22:27:00* Test Item Value Reference Range Interpretation Comments Alkaline Phosphatase (test code = 6768-6) 76 40-150 [facility] Centerodium Unlky9142-05-98 22:27:00* Test Item Value Reference Range Interpretation Comments Sodium Level (test code = 2951-2) 136 136-145 [facility] CenterPotassium Tqmmb2658-40-31 22:27:00* Test Item Value Reference Range Interpretation Comments Potassium Level (test code = 2823-3) 3.6 3.5-5.1 [facility] CenterChloride Pogoa8958-52-24 22:27:00* Test Item Value Reference Range Interpretation Comments Chloride Level (test code = 2075-0) 102 98-107 [facility] CenterCarbon Dioxide Flhri3113-17-27 22:27:00* Test Item Value Reference Range Interpretation Comments Carbon Dioxide Level (test code = 2028-9) 25 22-29 [facility] CenterAnion Tdh9267-24-55 22:27:00* Test Item Value Reference Range Interpretation Comments Anion Gap (test code = 42573-4) 12.6 8-16 [facility] CenterBlood Urea Ohtcdrnd0616-90-26 22:27:00* Test Item Value Reference Range Interpretation Comments Blood Urea Nitrogen (test code = 3094-0) 13 7-26 [facility] CenterCreatinine2019-12-02 22:27:00* Test Item Value Reference Range Interpretation Comments Creatinine (test code = 2160-0) 0.69 0.57-1.11 [facility] CenterBUN/Creatinine Bcwcm2718-29-41 22:27:00* Test Item Value Reference Range Interpretation Comments BUN/Creatinine Ratio (test code = 3097-3) 19 6-25 [facility] CenterEstimat Glomerular Filtration Rate 2019-01-22 22:27:00* Test Item Value Reference Range Interpretation Comments Estimat Glomerular Filtration Rate (test code = 855004891) > 60 >60 Ranges were taken from the National Kidney Disease Education Program and the [facility] Foundation literature.Reference ranges:60 or greater: Ypbwzx92-38 ( for 3 consecutive months): Chronic kidney disease 15 or less: Kidney failureBrooke Army Medical CenterGlucose Elrxi6316-43-52 22:27:00* Test Item Value Reference Range Interpretation Comments Glucose Level (test code = OBP2560) 103 74-118 [facility] CenterCalcium Dorxl2361-58-25 22:27:00* Test Item Value Reference Range Interpretation Comments Calcium Level (test code = 32370-9) 10.4 8.4-10.2 H [facility] CenterTotal Gpxrwvsko2423-94-10 22:27:00* Test Item Value Reference Range Interpretation Comments Total Bilirubin (test code = 1975-2) 0.9 0.2-1.2 [facility] CenterAspartate Amino Transf (AST/SGOT) 2019-01-22 22:27:00* Test Item Value Reference Range Interpretation Comments Aspartate Amino Transf (AST/SGOT) (test code = Aspartate Amino Transf (AST/SGOT)) 19 5-34 [facility] CenterAlanine Aminotransferase (ALT/SGPT) 2019-01-22 22:27:00* Test Item Value Reference Range Interpretation Comments Alanine Aminotransferase (ALT/SGPT) (test code = 1742-6) 22 0-55 [facility] CenterTotal Yyepxuy9336-75-36 22:27:00* Test Item Value Reference Range Interpretation Comments Total Protein (test code = 2885-2) 7.7 6.5-8.1 [facility] CenterAlbumin2019-12-02 22:27:00* Test Item Value Reference Range Interpretation Comments Albumin (test code = 1751-7) 4.4 3.5-5.0 [facility] CenterGlobulin2019-12-02 22:27:00* Test Item Value Reference Range Interpretation Comments Globulin (test code = 18995-7) 3.3 2.3-3.5 [facility] CenterAlbumin/Globulin Xtnov6435-77-00 22:27:00 * Test Item Value Reference Range Interpretation Comments Albumin/Globulin Ratio (test code = 1759-0) 1.3 0.8-2.0 [facility] CenterAlkaline Drzwnwlakai1943-15-51 22:27:00* Test Item Value Reference Range Interpretation Comments Alkaline Phosphatase (test code = 6768-6) 76 40-150 [facility] CenterWhite Blood Kxnok5501-54-86 21:08:00* Test Item Value Reference Range Interpretation Comments White Blood Count (test code = 6690-2) 8.08 4.8-10.8 [facility] CenterRed Blood Cgajc7249-14-70 21:08:00* Test Item Value Reference Range Interpretation Comments Red Blood Count (test code = 789-8) 4.74 3.6-5.1 [facility] CenterHemoglobin2019-12-02 21:08:00* Test Item Value Reference Range Interpretation Comments Hemoglobin (test code = 68680-4) 15.6 12.0-16.0 [facility] CenterHematocrit2019-12-02 21:08:00* Test Item Value Reference Range Interpretation Comments Hematocrit (test code = 4544-3) 45.9 34.2-44.1 H [facility] CenterMean Corpuscular Eghxmb8531-67-25 21:08:00* Test Item Value Reference Range Interpretation Comments Mean Corpuscular Volume (test code = 787-2) 96.8 81-99 [facility] CenterMean Corpuscular Hnapvytlkb4516-52-00 21:08:00* Test Item Value Reference Range Interpretation Comments Mean Corpuscular Hemoglobin (test code = 785-6) 32.9 28-32 H [facility] CenterMean Corpuscular Hemoglobin Concent 2019-01-22 21:08:00* Test Item Value Reference Range Interpretation Comments Mean Corpuscular Hemoglobin Concent (test code = 786-4) 34.0 31-35 [facility] CenterRed Cell Distribution Eaosm3643-30-42 21:08:00* Test Item Value Reference Range Interpretation Comments Red Cell Distribution Width (test code = 65069-9) 11.9 11.7 -14.4 [facility] CenterPlatelet Zrqew9712-36-61 21:08:00* Test Item Value Reference Range Interpretation Comments Platelet Count (test code = 777-3) 177 140-360 [facility] CenterNeutrophils (%) (Auto)2019-01-22 21:08:00 * Test Item Value Reference Range Interpretation Comments Neutrophils (%) (Auto) (test code = 65483-3) 52.1 38.7-80.0 [facility] CenterLymphocytes (%) (Auto)2019-01-22 21:08:00 * Test Item Value Reference Range Interpretation Comments Lymphocytes (%) (Auto) (test code = 736-9) 41.0 18.0-39.1 H [facility] CenterMonocytes (%) (Auto)2019-01-22 21:08:00* Test Item Value Reference Range Interpretation Comments Monocytes (%) (Auto) (test code = 5905-5) 5.3 4.4-11.3 [facility] CenterEosinophils (%) (Auto)2019-01-22 21:08:00 * Test Item Value Reference Range Interpretation Comments Eosinophils (%) (Auto) (test code = 713-8) 1.2 0.0-6.0 [facility] CenterBasophils (%) (Auto)2019-01-22 21:08:00* Test Item Value Reference Range Interpretation Comments Basophils (%) (Auto) (test code = 706-2) 0.2 0.0-1.0 [facility] CenterIM GRANULOCYTES %2019-01-22 21:08:00* Test Item Value Reference Range Interpretation Comments IM GRANULOCYTES % (test code = IM GRANULOCYTES %) 0.2 0.0- 1.0 [facility] CenterNeutrophils # (Auto)2019-01-22 21:08:00* Test Item Value Reference Range Interpretation Comments Neutrophils # (Auto) (test code = 751-8) 4.2 2.1-6.9 [facility] CenterLymphocytes # (Auto)2019-01-22 21:08:00* Test Item Value Reference Range Interpretation Comments Lymphocytes # (Auto) (test code = 34268-5) 3.3 1.0-3.2 H [facility] CenterMonocytes # (Auto)2019-01-22 21:08:00* Test Item Value Reference Range Interpretation Comments Monocytes # (Auto) (test code = 742-7) 0.4 0.2-0.8 [facility] CenterEosinophils # (Auto)2019-01-22 21:08:00* Test Item Value Reference Range Interpretation Comments Eosinophils # (Auto) (test code = 711-2) 0.1 0.0-0.4 [facility] CenterBasophils # (Auto)2019-01-22 21:08:00* Test Item Value Reference Range Interpretation Comments Basophils # (Auto) (test code = 704-7) 0.0 0.0-0.1 [facility] CenterAbsolute Immature Granulocyte (auto 2019-01-22 21:08:00* Test Item Value Reference Range Interpretation Comments Absolute Immature Granulocyte (auto (velasquez t code = Absolute Immature Granulocyte (auto) 0.02 0-0.1 [facility] CenterWhite Blood Uyofe1802-59-20 21:08:00* Test Item Value Reference Range Interpretation Comments White Blood Count (test code = 6690-2) 8.08 4.8-10.8 [facility] CenterRed Blood Tgwzj5629-25-89 21:08:00* Test Item Value Reference Range Interpretation Comments Red Blood Count (test code = 789-8) 4.74 3.6-5.1 [facility] CenterHemoglobin2019-12-02 21:08:00* Test Item Value Reference Range Interpretation Comments Hemoglobin (test code = 74522-7) 15.6 12.0-16.0 [facility] CenterHematocrit2019-12-02 21:08:00* Test Item Value Reference Range Interpretation Comments Hematocrit (test code = 4544-3) 45.9 34.2-44.1 H [facility] CenterMean Corpuscular Anjaic6482-68-20 21:08:00* Test Item Value Reference Range Interpretation Comments Mean Corpuscular Volume (test code = 787-2) 96.8 81-99 [facility] CenterMean Corpuscular Hdybhdbsym3940-45-33 21:08:00* Test Item Value Reference Range Interpretation Comments Mean Corpuscular Hemoglobin (test code = 785-6) 32.9 28-32 H [facility] CenterMean Corpuscular Hemoglobin Concent 2019-01-22 21:08:00* Test Item Value Reference Range Interpretation Comments Mean Corpuscular Hemoglobin Concent (test code = 786-4) 34.0 31-35 [facility] CenterRed Cell Distribution Afwdq9445-80-33 21:08:00* Test Item Value Reference Range Interpretation Comments Red Cell Distribution Width (test code = 03406-5) 11.9 11.7 -14.4 [facility] CenterPlatelet Izyqh0661-30-57 21:08:00* Test Item Value Reference Range Interpretation Comments Platelet Count (test code = 777-3) 177 140-360 [facility] CenterNeutrophils (%) (Auto)2019-01-22 21:08:00 * Test Item Value Reference Range Interpretation Comments Neutrophils (%) (Auto) (test code = 04528-4) 52.1 38.7-80.0 [facility] CenterLymphocytes (%) (Auto)2019-01-22 21:08:00 * Test Item Value Reference Range Interpretation Comments Lymphocytes (%) (Auto) (test code = 736-9) 41.0 18.0-39.1 H [facility] CenterMonocytes (%) (Auto)2019-01-22 21:08:00* Test Item Value Reference Range Interpretation Comments Monocytes (%) (Auto) (test code = 5905-5) 5.3 4.4-11.3 [facility] CenterEosinophils (%) (Auto)2019-01-22 21:08:00 * Test Item Value Reference Range Interpretation Comments Eosinophils (%) (Auto) (test code = 713-8) 1.2 0.0-6.0 [facility] CenterBasophils (%) (Auto)2019-01-22 21:08:00* Test Item Value Reference Range Interpretation Comments Basophils (%) (Auto) (test code = 706-2) 0.2 0.0-1.0 [facility] CenterIM GRANULOCYTES %2019-01-22 21:08:00* Test Item Value Reference Range Interpretation Comments IM GRANULOCYTES % (test code = IM GRANULOCYTES %) 0.2 0.0- 1.0 [facility] CenterNeutrophils # (Auto)2019-01-22 21:08:00* Test Item Value Reference Range Interpretation Comments Neutrophils # (Auto) (test code = 751-8) 4.2 2.1-6.9 [facility] CenterLymphocytes # (Auto)2019-01-22 21:08:00* Test Item Value Reference Range Interpretation Comments Lymphocytes # (Auto) (test code = 86756-6) 3.3 1.0-3.2 H [facility] CenterMonocytes # (Auto)2019-01-22 21:08:00* Test Item Value Reference Range Interpretation Comments Monocytes # (Auto) (test code = 742-7) 0.4 0.2-0.8 [facility] CenterEosinophils # (Auto)2019-01-22 21:08:00* Test Item Value Reference Range Interpretation Comments Eosinophils # (Auto) (test code = 711-2) 0.1 0.0-0.4 [facility] CenterBasophils # (Auto)2019-01-22 21:08:00* Test Item Value Reference Range Interpretation Comments Basophils # (Auto) (test code = 704-7) 0.0 0.0-0.1 [facility] CenterAbsolute Immature Granulocyte (auto 2019-01-22 21:08:00* Test Item Value Reference Range Interpretation Comments Absolute Immature Granulocyte (auto (velasquez t code = Absolute Immature Granulocyte (auto) 0.02 0-0.1 [facility] CenterUrine UJI4085-38-39 19:48:00* Test Item Value Reference Range Interpretation Comments Urine WBC (test code = 5821-4) 11-20 0-5 H [facility] CenterUrine HBI7963-57-32 19:48:00* Test Item Value Reference Range Interpretation Comments Urine RBC (test code = 87175-6) 6-10 0-5 H [facility] CenterUrine Rpswjlfm7760-25-19 19:48:00* Test Item Value Reference Range Interpretation Comments Urine Bacteria (test code = 64618-9) MODERATE NONE H [facility] CenterUrine Epithelial Osseg1019-02-11 19:48:00 * Test Item Value Reference Range Interpretation Comments Urine Epithelial Cells (test code = 82885-5) MODERATE NONE [facility] CenterUrine MFJ0575-98-82 19:48:00* Test Item Value Reference Range Interpretation Comments Urine WBC (test code = 5821-4) 11-20 0-5 [facility] [id number] 19:48:00* Test Item Value Reference Range Interpretation Comments Urine RBC (test code = 34457-9) 6-10 0-5 [facility] [id number] 19:48:00* Test Item Value Reference Range Interpretation Comments Urine Bacteria (test code = 73042-4) MODERATE NONE [facility] Epithelial [id number] 19:48:00 * Test Item Value Reference Range Interpretation Comments Urine Epithelial Cells (test code = 72620-5) MODERATE NONE [facility] [id number] 19:28:00* Test Item Value Reference Range Interpretation Comments Urine Color (test code = 5778-6) YELLOW YELLOW [facility] [id number] 19:28:00* Test Item Value Reference Range Interpretation Comments Urine Clarity (test code = 79484-2) SL CLOUDY CLEAR [facility] [id number] 19:28:00 * Test Item Value Reference Range Interpretation Comments Urine Specific [place] (test code = 5811-5) 1.020 1.010-1.02 5 [facility] [id number] 19:28:00* Test Item Value Reference Range Interpretation Comments Urine pH (test code = 82557-8) 5.5 5-7 [facility] Leukocyte [id number] 19:28:00* Test Item Value Reference Range Interpretation Comments Urine Leukocyte Esterase (test code = 97150-5) MODERATE NEGATIV E [facility] [id number] 19:28:00* Test Item Value Reference Range Interpretation Comments Urine Nitrite (test code = 47037-7) NEGATIVE NEGATIVE [facility] [id number] 19:28:00* Test Item Value Reference Range Interpretation Comments Urine Protein (test code = 10386-9) NEGATIVE NEGATIVE [facility] Glucose (UA)2019-01-22 19:28:00* Test Item Value Reference Range Interpretation Comments Urine Glucose (UA) (test code = 86981-6) NEGATIVE NEGATIVE [facility] [id number] 19:28:00* Test Item Value Reference Range Interpretation Comments Urine Ketones (test code = 80059-6) NEGATIVE NEGATIVE [facility] Mwjekkmcsvhg2429-71-40 19:28:00* Test Item Value Reference Range Interpretation Comments Urine Urobilinogen (test code = 93302-4) 0.2 0.2-1 [facility] [id number] 19:28:00* Test Item Value Reference Range Interpretation Comments Urine Bilirubin (test code = 1977-8) NEGATIVE NEGATIVE [facility] Aezms8444-96-25 19:28:00* Test Item Value Reference Range Interpretation Comments Urine Blood (test code = 17411-8) TRACE NEGATIVE [facility] [id number] 19:28:00* Test Item Value Reference Range Interpretation Comments Urine Color (test code = 5778-6) YELLOW YELLOW [facility] Ffuwiql6299-39-29 19:28:00* Test Item Value Reference Range Interpretation Comments Urine Clarity (test code = 38197-7) SL CLOUDY CLEAR [facility] [id number] 19:28:00 * Test Item Value Reference Range Interpretation Comments Urine Specific [place] (test code = 5811-5) 1.020 1.010-1.02 5 [facility] [id number] 19:28:00* Test Item Value Reference Range Interpretation Comments Urine pH (test code = 36215-8) 5.5 5-7 [facility] Leukocyte [id number] 19:28:00* Test Item Value Reference Range Interpretation Comments Urine Leukocyte Esterase (test code = 61759-5) MODERATE NEGATIV E [facility] Wfgzpsq6200-03-88 19:28:00* Test Item Value Reference Range Interpretation Comments Urine Nitrite (test code = 27726-5) NEGATIVE NEGATIVE [facility] Fzfrcel0066-00-09 19:28:00* Test Item Value Reference Range Interpretation Comments Urine Protein (test code = 89933-9) NEGATIVE NEGATIVE [facility] Glucose (UA)2019-01-22 19:28:00* Test Item Value Reference Range Interpretation Comments Urine Glucose (UA) (test code = 69912-1) NEGATIVE NEGATIVE [facility] [id number] 19:28:00* Test Item Value Reference Range Interpretation Comments Urine Ketones (test code = 56317-7) NEGATIVE NEGATIVE [facility] Cjhweqqrdfcu5602-76-69 19:28:00* Test Item Value Reference Range Interpretation Comments Urine Urobilinogen (test code = 22385-2) 0.2 0.2-1 [facility] Brosoruoj5271-24-09 19:28:00* Test Item Value Reference Range Interpretation Comments Urine Bilirubin (test code = 1977-8) NEGATIVE NEGATIVE [facility] Ukigy7577-72-16 19:28:00* Test Item Value Reference Range Interpretation Comments Urine Blood (test code = 83441-4) TRACE NEGATIVE [facility] Gojq4638-96-74 19:27:00* Test Item Value Reference Range Interpretation Comments Urine Test (test code = 2106-3) NEGATIVE NEGATIVE [facility] Adnn5947-31-47 19:27:00* Test Item Value Reference Range Interpretation Comments Urine Test (test code = 2106-3) NEGATIVE NEGATIVE [facility], [id number] 00:37:00Reason for exam:->LLQ painReason for exam:->post menopausal vag bleedingFINAL REPORT U/S, PELVIS, U/S, ENDOVAGINAL (EV), U/S, DUPLEX, DOPPLER CLINICAL INDICATION: LLQ painpost menopausal vag bleeding COMPARISON: None TECHNIQUE: Ultrasound imaging of the pelvis was performed transabdominally through a distended urinary bladder followed by transvaginal examination po stvoid. Color and spectral Doppler evaluation was also performed. FINDINGS: Viry kitty Orientation: Anteverted Size: 7.1 x 5.2 x 6.3 cm Masses: None Endometrial thickness: 0.8 cm. Cervix: Not well seen. Adnexa: Right Ova ry:Not identified. Left Ovary: Size: 1.7 x 2.0 x 1.5 cm.cm. Echogenicity : Normal. There is a 2.4 x 1.0 x 1.6 cm paraovarian simple cyst. Vascular fl ow: Preserved Free fluid: None. Additional findings: None IMPRESSION: Endomet rial complex is thickened measuring up to 0.8 cm. Recommend further evaluation w ith endometrial sampling in this postmenopausal patient with vaginal bleeding. S imple left paraovarian cyst measuring up to 2.4 cm. Recommend follow-up ultrasou nd in one year to ensure stability. Signed: Gallo Ayala Date/Time: 12/26/2017 00:37:52 Reading Location: [address] ading Room U/S, ENDOVAGINAL (EV)2017-12-26 00:37:00Reason for exam:->post menopausal bleedReason for exam:->LLQ painFINAL REPORT U/S, PELVIS, U/S, ENDOVAGINAL (EV), U/S, [...] x 1.6 cm paraovarian simple cyst. Vascular fl ow: Preserved Free fluid: None. Additional findings: None IMPRESSION: Endomet rial complex is thickened measuring up to 0.8 cm. Recommend further evaluation w ith endometrial sampling in this postmenopausal patient with vaginal bleeding. S imple left paraovarian cyst measuring up to 2.4 cm. Recommend follow-up ultrasou nd in one year to ensure stability. Signed: Gallo Ayalaepjenny Verifneo rivero Date/Time: 12/26/2017 00:37:52 Reading Location: [facility] [address] [place] [address] ading Room U/S, DUPLEX, [id number] 00:37:00Reason for exam:->llq painReason for exam:->post menopausal bleedFINAL REPORT U/S, PELVIS, U/S, ENDOVAGINAL (EV), U/S, [...] one year to ensure stability. Signed: Gallo Ayalaepjenny Verified Date/Time: 12/26/2017 00:37:52 Reading Location: [address] Transitional Reading Room C METABOLIC [id number] 22:54:00* Test Item Value Reference Range Interpretation Comments SODIUM (BEAKER) (test code = 381) 140 meq/L 136-145 POTASSIUM (BEAKER) (test code = 379) 3.9 meq/L 3.5-5.1 Specimen slightly hemolyzed CHLORIDE (BEAKER) (test code = 382) 108 meq/L 98-107 H CO2 (BEAKER) (test code = 355) 25 meq/L 22-29 BLOOD UREA NITROGEN (BEAKER) (test code = 354) 19 mg/dL 7-21 CREATININE (BEAKER) (test code = 358) 0.75 mg/dL 0.57-1.25 Specimen slightly hemolyzed GLUCOSE RANDOM (BEAKER) (test code = 652) 112 mg/dL 70-105 H CALCIUM (BEAKER) (test code = 697) 9.3 mg/dL 8.4-10.2 EGFR (BEAKER) (test code = 1092) 81 mL/min/1.73 sq m ESTIMATED GFR IS NOT ACCURATE CREATININE CLEARANCE IN PREDICTING GLOMERULAR FILTRATION RATE. ESTIMATED GFR IS NOT APPLICABLE FOR DIALYSIS PATIENTS. RAPID STREP A [id number] 22:48:00* Test Item Value Reference Range Interpretation Comments STREP A ANTIGEN (BEAKER) (test code = 556) Negative Negative CBC W/PLT COUNT & AUTO [id number] 22:44:00* Test Item Value Reference Range Interpretation Comments WHITE BLOOD CELL COUNT (BEAKER) (test code = 775) 7.7 K/ L 3.5- 10.5 RED BLOOD CELL COUNT (BEAKER) (test code = 761) 4.19 M/ L 3.93-5 .22 HEMOGLOBIN (BEAKER) (test code = 410) 14.3 GM/DL 11.2-15.7 HEMATOCRIT (BEAKER) (test code = 411) 41.6 % 34.1-44.9 MEAN CORPUSCULAR VOLUME (BEAKER) (test code = 753) 99.3 fL 79. 4-94.8 H MEAN CORPUSCULAR HEMOGLOBIN (BEAKER) (test code = 751) 34.1 pg 25.6-32.2 H MEAN CORPUSCULAR HEMOGLOBIN CONC (BEAKER) (test code = 752) 34.4 GM/DL 32.2-35.5 RED CELL DISTRIBUTION WIDTH (BEAKER) (test code = 412) 12.3 % 11.7-14.4 PLATELET COUNT (BEAKER) (test code = 756) 164 K/CU MM 150-450 MEAN PLATELET VOLUME (BEAKER) (test code = 754) 12.8 fL 9.4-12 .3 H NUCLEATED RED BLOOD CELLS (BEAKER) (test code = 413) 0 /100 WBC 0 -0 NEUTROPHILS RELATIVE PERCENT (BEAKER) (test code = 429) 45 % LYMPHOCYTES RELATIVE PERCENT (BEAKER) (test code = 430) 48 % MONOCYTES RELATIVE PERCENT (BEAKER) (test code = 431) 6 % EOSINOPHILS RELATIVE PERCENT (BEAKER) (test code = 432) 2 % BASOPHILS RELATIVE PERCENT (BEAKER) (test code = 437) 1 % NEUTROPHILS ABSOLUTE COUNT (BEAKER) (test code = 670) 3.42 K/ L 1.56-6.13 LYMPHOCYTES ABSOLUTE COUNT (BEAKER) (test code = 414) 3.64 K/ L 1.18-3.74 MONOCYTES ABSOLUTE COUNT (BEAKER) (test code = 415) 0.43 K/ L 0. 24-0.36 H EOSINOPHILS ABSOLUTE COUNT (BEAKER) (test code = 416) 0.12 K/ L 0.04-0.36 BASOPHILS ABSOLUTE COUNT (BEAKER) (test code = 417) 0.04 K/ L 0. 01-0.08 IMMATURE GRANULOCYTES-RELATIVE PERCENT (BEAKER) (test code = 2801) 0 % 0-1 SCREEN, [id number] 22:12:00* Test Item Value Reference Range Interpretation Comments TEST URINE (BEAKER) (test code = 583) Negative CT, BRAIN, WITHOUT [id number] 22:09:00Reason for exam:->HEADACHEReason for exam:->SORE THROATFINAL REPORT [...] Ayala Verified Date/Time: 12/25/2017 22:09:31 Reading Location: [address] Reading Room ALYSIS W/ REFLEX URINE [id number] 21:53:00* Test Item Value Reference Range Interpretation Comments COLOR (BEAKER) (test code = 470) Light Yellow CLARITY (BEAKER) (test code = 469) Clear SPECIFIC GRAVITY UA (BEAKER) (test code = 468) 1.015 1.001-1 .035 PH UA (BEAKER) (test code = 467) 5.5 5.0-8.0 PROTEIN UA (BEAKER) (test code = 464) Negative Negative GLUCOSE UA (BEAKER) (test code = 365) Negative Negative KETONES UA (BEAKER) (test code = 371) Negative Negative BILIRUBIN UA (BEAKER) (test code = 462) Negative Negative BLOOD UA (BEAKER) (test code = 461) Negative Negative NITRITE UA (BEAKER) (test code = 465) Negative Negative LEUKOCYTE ESTERASE UA (BEAKER) (test code = 466) Negative Negat gabe UROBILINOGEN UA (BEAKER) (test code = 463) 0.2 mg/dL 0.2-1.0 RBC UA (BEAKER) (test code = 519) 1 /HPF WBC UA (BEAKER) (test code = 520) < /HPF SQUAMOUS EPITHELIAL (BEAKER) (test code = 516) < /HPF CRYSTALS, URINE (BEAKER) (test code = 1521) Rare SOURCE(BEAKER) (test code = 2795) CT, CTANGIO [id number] 03:35:00FINAL REPORT CT, CTANGIO BRAINBRAIN CT WITHOUT [...] These are stable since 2010. Signed: Annmarie Juan MDReport Verified Date/Time: 06/04/2017 03:35:01 Reading Location: [address] Consult Reading Room C METABOLIC [id number] 02:14:00* Test Item Value Reference Range Interpretation Comments SODIUM (BEAKER) (test code = 381) 141 meq/L 136-145 POTASSIUM (BEAKER) (test code = 379) 3.7 meq/L 3.5-5.1 CHLORIDE (BEAKER) (test code = 382) 109 meq/L 98-107 H CO2 (BEAKER) (test code = 355) 23 meq/L 22-29 BLOOD UREA NITROGEN (BEAKER) (test code = 354) 15 mg/dL 7-21 CREATININE (BEAKER) (test code = 358) 0.61 mg/dL 0.57-1.25 GLUCOSE RANDOM (BEAKER) (test code = 652) 110 mg/dL 70-105 H CALCIUM (BEAKER) (test code = 697) 9.4 mg/dL 8.4-10.2 EGFR (BEAKER) (test code = 1092) 103 mL/min/1.73 sq m ESTIMATED GFR IS NOT ACCURATE CREATININE CLEARANCE IN PREDICTING GLOMERULAR FILTRATION RATE. ESTIMATED GFR IS NOT APPLICABLE FOR DIALYSIS PATIENTS. CBC (HEMOGRAM ONLY)2017-06-04 01:49:00* Test Item Value Reference Range Interpretation Comments WHITE BLOOD CELL COUNT (BEAKER) (test code = 775) 7.4 K/ L 3.5- 10.5 RED BLOOD CELL COUNT (BEAKER) (test code = 761) 4.55 M/ L 3.93-5 .22 HEMOGLOBIN (BEAKER) (test code = 410) 14.7 GM/DL 11.2-15.7 HEMATOCRIT (BEAKER) (test code = 411) 43.5 % 34.1-44.9 MEAN CORPUSCULAR VOLUME (BEAKER) (test code = 753) 95.6 fL 79. 4-94.8 H MEAN CORPUSCULAR HEMOGLOBIN (BEAKER) (test code = 751) 32.3 pg 25.6-32.2 H MEAN CORPUSCULAR HEMOGLOBIN CONC (BEAKER) (test code = 752) 33.8 GM/DL 32.2-35.5 RED CELL DISTRIBUTION WIDTH (BEAKER) (test code = 412) 12.1 % 11.7-14.4 PLATELET COUNT (BEAKER) (test code = 756) 182 K/CU MM 150-450 MEAN PLATELET VOLUME (BEAKER) (test code = 754) 13.3 fL 9.4-12 .3 H NUCLEATED RED BLOOD CELLS (BEAKER) (test code = 413) 0 /100 WBC 0 -0 CT, [id number] 22:21:00Reason for exam:->ABDOMINAL PAINsince 12 pmReason for [...] and steatosis. Sign ed: JR Av, Mayra Moreno Verified Date/Time: 02/25/2017 22:21:58 Les dudley Location: [facility] B1 C013Y CT Body Reading Room C METABOLIC [id number] 21:11:00* Test Item Value Reference Range Interpretation Comments SODIUM (BEAKER) (test code = 381) 144 meq/L 135-148 POTASSIUM (BEAKER) (test code = 379) 3.8 meq/L 3.6-5.5 CHLORIDE (BEAKER) (test code = 382) 102 meq/L 98-106 CO2 (BEAKER) (test code = 355) 27 meq/L 24-32 BLOOD UREA NITROGEN (BEAKER) (test code = 354) 12 mg/dL 10-26 CREATININE (BEAKER) (test code = 358) 0.45 mg/dL 0.50-1.20 L GLUCOSE RANDOM (BEAKER) (test code = 652) 133 mg/dL 70-110 H CALCIUM (BEAKER) (test code = 697) 9.4 mg/dL 8.5-10.5 EGFR (BEAKER) (test code = 1092) 147 mL/min/1.73 sq m ESTIMATED GFR IS NOT ACCURATE CREATININE CLEARANCE IN PREDICTING GLOMERULAR FILTRATION RATE. ESTIMATED GFR IS NOT APPLICABLE FOR DIALYSIS PATIENTS. HEPATIC FUNCTION [id number] 21:10:00* Test Item Value Reference Range Interpretation Comments TOTAL PROTEIN (BEAKER) (test code = 770) 7.7 gm/dL 6.0-8.5 ALBUMIN (BEAKER) (test code = 1145) 4.4 g/dL 3.5-5.0 BILIRUBIN TOTAL (BEAKER) (test code = 377) 1.1 mg/dL 0.1-1.2 BILIRUBIN DIRECT (BEAKER) (test code = 706) 0.4 mg/dL 0.0-0.4 ALKALINE PHOSPHATASE (BEAKER) (test code = 346) 106 U/L 30-115 AST (SGOT) (BEAKER) (test code = 353) 62 U/L 5-40 H ALT (SGPT) (BEAKER) (test code = 347) 85 U/L 5-50 H [id number] 21:10:00* Test Item Value Reference Range Interpretation Comments LIPASE (BEAKER) (test code = 749) 55 U/L 40-240 URINALYSIS W/ [id number] 21:00:00* Test Item Value Reference Range Interpretation Comments COLOR (BEAKER) (test code = 470) Dark Yellow CLARITY (BEAKER) (test code = 469) Clear SPECIFIC GRAVITY UA (BEAKER) (test code = 468) 1.020 1.001-1 .035 PH UA (BEAKER) (test code = 467) 6.0 5.0-8.0 PROTEIN UA (BEAKER) (test code = 464) Negative Negative GLUCOSE UA (BEAKER) (test code = 365) Negative Negative KETONES UA (BEAKER) (test code = 371) Trace Negative A BILIRUBIN UA (BEAKER) (test code = 462) Negative Negative BLOOD UA (BEAKER) (test code = 461) Trace Negative A NITRITE UA (BEAKER) (test code = 465) Negative Negative LEUKOCYTE ESTERASE UA (BEAKER) (test code = 466) Negative Negat gabe UROBILINOGEN UA (BEAKER) (test code = 463) 0.2 mg/dL 0.2-1.0 BACTERIA (BEAKER) (test code = 517) Occasional MUCUS (BEAKER) (test code = 1574) Moderate RBC UA-MANUAL (BEAKER) (test code = 1659) <5 /HPF WBC UA-MANUAL (BEAKER) (test code = 1661) <5 /HPF SQUAMOUS EPITHELIAL MANUAL (BEAKER) (test code = 1663) <5 /HPF SOURCE(BEAKER) (test code = 2795) CBC W/PLT COUNT & AUTO [id number] 20:56:00* Test Item Value Reference Range Interpretation Comments WHITE BLOOD CELL COUNT (BEAKER) (test code = 775) 9.0 10e3/ L 4.0- 10.0 RED BLOOD CELL COUNT (BEAKER) (test code = 761) 4.79 10e6/ L 4.00-5 .00 HEMOGLOBIN (BEAKER) (test code = 410) 15.6 g/dL 12.0-15.0 H HEMATOCRIT (BEAKER) (test code = 411) 45.9 % 36.0-45.0 H MEAN CORPUSCULAR VOLUME (BEAKER) (test code = 753) 95.9 fL 82. 0-99.0 MEAN CORPUSCULAR HEMOGLOBIN (BEAKER) (test code = 751) 32.5 pg 27.0-33.0 MEAN CORPUSCULAR HEMOGLOBIN CONC (BEAKER) (test code = 752) 33.9 g/dL 32.0-36.0 RED CELL DISTRIBUTION WIDTH (BEAKER) (test code = 412) 10.8 % 10.3-14.2 PLATELET COUNT (BEAKER) (test code = 756) 173 10e3/ L 150-430 MEAN PLATELET VOLUME (BEAKER) (test code = 754) 9.3 fL 6.5-10 .5 NEUTROPHILS RELATIVE PERCENT (BEAKER) (test code = 429) 80 % LYMPHOCYTES RELATIVE PERCENT (BEAKER) (test code = 430) 14 % MONOCYTES RELATIVE PERCENT (BEAKER) (test code = 431) 5 % EOSINOPHILS RELATIVE PERCENT (BEAKER) (test code = 432) 1 % BASOPHILS RELATIVE PERCENT (BEAKER) (test code = 437) 1 % NEUTROPHILS ABSOLUTE COUNT (BEAKER) (test code = 670) 7.18 10e3/ L 1.80-8.00 LYMPHOCYTES ABSOLUTE COUNT (BEAKER) (test code = 414) 1.22 10e3/ L 1.48-4.50 L MONOCYTES ABSOLUTE COUNT (BEAKER) (test code = 415) 0.40 10e3/ L 0. 00-1.30 EOSINOPHILS ABSOLUTE COUNT (BEAKER) (test code = 416) 0.13 10e3/ L 0.00-0.50 BASOPHILS ABSOLUTE COUNT (BEAKER) (test code = 417) 0.04 10e3/ L 0. 00-0.20 SCREEN, [id number] 18:37:00* Test Item Value Reference Range Interpretation Comments TEST URINE (BEAKER) (test code = 583) Negative URINALYSIS W/ [id number] 18:32:00* Test Item Value Reference Range Interpretation Comments COLOR (BEAKER) (test code = 470) Yellow CLARITY (BEAKER) (test code = 469) Clear SPECIFIC GRAVITY UA (BEAKER) (test code = 468) 1.010 1.001-1 .035 PH UA (BEAKER) (test code = 467) 5.0 5.0-8.0 PROTEIN UA (BEAKER) (test code = 464) Negative Negative GLUCOSE UA (BEAKER) (test code = 365) Negative Negative KETONES UA (BEAKER) (test code = 371) Negative Negative BILIRUBIN UA (BEAKER) (test code = 462) Negative Negative BLOOD UA (BEAKER) (test code = 461) Negative Negative NITRITE UA (BEAKER) (test code = 465) Negative Negative LEUKOCYTE ESTERASE UA (BEAKER) (test code = 466) Negative Negat gabe UROBILINOGEN UA (BEAKER) (test code = 463) 0.2 mg/dL 0.2-1.0 BACTERIA (BEAKER) (test code = 517) Rare RBC UA-MANUAL (BEAKER) (test code = 1659) None Seen /HPF WBC UA-MANUAL (BEAKER) (test code = 1661) <5 /HPF SQUAMOUS EPITHELIAL MANUAL (BEAKER) (test code = 1663) <5 /HPF SOURCE(BEAKER) (test code = 2795) BASIC METABOLIC [id number] 18:31:00* Test Item Value Reference Range Interpretation Comments SODIUM (BEAKER) (test code = 381) 139 meq/L 135-148 POTASSIUM (BEAKER) (test code = 379) 4.0 meq/L 3.6-5.5 CHLORIDE (BEAKER) (test code = 382) 101 meq/L 98-106 CO2 (BEAKER) (test code = 355) 27 meq/L 24-32 BLOOD UREA NITROGEN (BEAKER) (test code = 354) 7 mg/dL 10-26 L CREATININE (BEAKER) (test code = 358) 0.48 mg/dL 0.50-1.20 L GLUCOSE RANDOM (BEAKER) (test code = 652) 94 mg/dL 70-110 CALCIUM (BEAKER) (test code = 697) 9.2 mg/dL 8.5-10.5 EGFR (BEAKER) (test code = 1092) 137 mL/min/1.73 sq m ESTIMATED GFR IS NOT ACCURATE CREATININE CLEARANCE IN PREDICTING GLOMERULAR FILTRATION RATE. ESTIMATED GFR IS NOT APPLICABLE FOR DIALYSIS PATIENTS. ALKALINE [id number] 18:30:00* Test Item Value Reference Range Interpretation Comments ALKALINE PHOSPHATASE (BEAKER) (test code = 346) 92 U/L 30-115 AST (SGOT)2016-09-06 18:30:00* Test Item Value Reference Range Interpretation Comments AST (SGOT) (BEAKER) (test code = 353) 35 U/L 5-40 ALT (SGPT)2016-09-06 18:30:00* Test Item Value Reference Range Interpretation Comments ALT (SGPT) (BEAKER) (test code = 347) 40 U/L 5-50 [id number] 18:30:00* Test Item Value Reference Range Interpretation Comments AMYLASE (BEAKER) (test code = 349) 48 U/L 30-110 [id number] 18:30:00* Test Item Value Reference Range Interpretation Comments LIPASE (BEAKER) (test code = 749) 32 U/L 40-240 L CBC W/PLT COUNT & AUTO [id number] 18:23:00* Test Item Value Reference Range Interpretation Comments WHITE BLOOD CELL COUNT (BEAKER) (test code = 775) 8.2 10e3/ L 4.0- 10.0 RED BLOOD CELL COUNT (BEAKER) (test code = 761) 4.37 10e6/ L 4.00-5 .00 HEMOGLOBIN (BEAKER) (test code = 410) 14.5 g/dL 12.0-15.0 HEMATOCRIT (BEAKER) (test code = 411) 42.4 % 36.0-45.0 MEAN CORPUSCULAR VOLUME (BEAKER) (test code = 753) 97.1 fL 82. 0-99.0 MEAN CORPUSCULAR HEMOGLOBIN (BEAKER) (test code = 751) 33.3 pg 27.0-33.0 H MEAN CORPUSCULAR HEMOGLOBIN CONC (BEAKER) (test code = 752) 34.3 g/dL 32.0-36.0 RED CELL DISTRIBUTION WIDTH (BEAKER) (test code = 412) 11.3 % 10.3-14.2 PLATELET COUNT (BEAKER) (test code = 756) 181 10e3/ L 150-430 MEAN PLATELET VOLUME (BEAKER) (test code = 754) 9.7 fL 6.5-10 .5 NEUTROPHILS RELATIVE PERCENT (BEAKER) (test code = 429) 51 % LYMPHOCYTES RELATIVE PERCENT (BEAKER) (test code = 430) 41 % MONOCYTES RELATIVE PERCENT (BEAKER) (test code = 431) 6 % EOSINOPHILS RELATIVE PERCENT (BEAKER) (test code = 432) 2 % BASOPHILS RELATIVE PERCENT (BEAKER) (test code = 437) 1 % NEUTROPHILS ABSOLUTE COUNT (BEAKER) (test code = 670) 4.16 10e3/ L 1.80-8.00 LYMPHOCYTES ABSOLUTE COUNT (BEAKER) (test code = 414) 3.35 10e3/ L 1.48-4.50 MONOCYTES ABSOLUTE COUNT (BEAKER) (test code = 415) 0.48 10e3/ L 0. 00-1.30 EOSINOPHILS ABSOLUTE COUNT (BEAKER) (test code = 416) 0.13 10e3/ L 0.00-0.50 BASOPHILS ABSOLUTE COUNT (BEAKER) (test code = 417) 0.04 10e3/ L 0. 00-0.20 [id number] 15:38:48939Eydcnhkd DkcpthfTggfoaesv8965-87-77 15:38:85913 [facility] KzbzansBshwscljb1450-82-25 15:38:0040[facility] 2013-02-28 15:38:61027Jkvrztvc OyhylrfEygikuuax7638-85-23 15:38:78711 MEQ/L [facility] EqrjiqsTxdyalkms1552-81-98 15:38:004.2 [facility]/L[facility] 2013-02-28 15:38:000.5[facility] MtwemkuJqjzvgzle3542-36-06 15:38:0010[facility] HzntunnLtsnxgshx2780-52-93 15:38:00* Test Item Value Reference Range Interpretation Comments BUN/CREAT (test code = BUN/CREAT) 20 1 6-25 [facility] OfmdhhfSgmorklkm0779-09-62 15:38:004.4[facility] 2013-02-28 15:38:009.5[facility] SnltpetYlvfefxpn3837-58-36 15:38:0049[facility] NcugwpiRskbsvxrc6566-02-29 15:38:0017[facility] WblwkdlWdvvbouag6077-33-54 15:38:85574Ilxuyejp YddjbrmIxncjhuwn5046-23-00 15:38:002.070[facility] Spayhuxosc4728-94-86 15:38:0016.4[facility] JguguedFmroupzewl7898-46-95 15:38:00 47.9[facility] MvywnhyWmhujomcwn1560-15-83 15:38:56025 K/CMMMemorial [facility] Exvdnvirmf3796-44-09 15:38:00Light YellowMemorial CfnymfsWiprnwtgwi9014-62-42 15:38:00ModerateMemorial WoawixeCgnvkcokh0315-53-76 21:55:0018[facility] Ynyewzpsl2189-23-24 15:15:59891Qbarizrh JjofcooZltfjbueh4970-32-45 15:15:30337 [facility] XkijxjvPllztzkla4315-66-91 15:15:0037[facility] 2012-03-31 15:15:88351 MEQ/LMemorial DoxxfrbTfjjtfvls0579-74-92 15:15:004.1 MEQ/LMemorial IaullpbXjgjuxnwq6780-50-33 15:15:000.5[facility] 2012-03-31 15:15:008[facility] XoehyrgIsyowpuyn3049-35-82 15:15:00* Test Item Value Reference Range Interpretation Comments BUN/CREAT (test code = BUN/CREAT) 16 08-15 [facility] WicdryoPuhggcpxd9008-78-91 15:15:004.9[facility] 2012-03-31 15:15:009.1[facility] IparqfvVzuohimdk1632-26-27 15:15:0054[facility] PwczayfSafuqfdsh0604-96-51 15:15:0027[facility] KycowjpJxlcqaxcr7993-61-72 15:15:0097[facility] VllxnumFqaplhelb8630-62-00 15:15:002.230[facility] Nhwwyisvc5747-97-50 15:15:73641Qtqixyuj WpzwslcNvftzrwhk2893-00-98 15:15:75359 [facility] UbuzhbsYoglqcqtq3500-96-65 15:15:0037[facility] 2012-03-31 15:15:13441 MEQ/LMemorial VhnwxkkPwiiczmrv5183-39-47 15:15:004.1 MEQ/LMemorial ZykiyvmPwjyauugn2200-54-59 15:15:000.5[facility] 2012-03-31 15:15:008[facility] IntwqxuMmtjbcyym5373-64-09 15:15:00* Test Item Value Reference Range Interpretation Comments BUN/CREAT (test code = BUN/CREAT) 16 1 08-15 [facility] HdhfyeiCgnpzwpyr2573-19-59 15:15:004.9[facility] 2012-03-31 15:15:009.1[facility] PatjrbvAuxsfbvjd7956-48-73 15:15:0054[facility] AdlewwbMjzzhwiub6632-53-20 15:15:0027[facility] GttevomCzinufgii8050-22-07 15:15:0097[facility] GfvntrhZuwqitqqg0660-32-24 15:15:002.230[facility] Rktdxmwnp7410-21-91 15:15:38591Dfwtgxgl UmuqasjLxipfcuyk5634-70-74 15:15:58823 [facility] MkkpakmShyeuciwv3477-90-23 15:15:0037[facility] [facility] 2012-03-31 15:15:0091[facility] BbpsqpuYgoqsghyb7098-95-81 15:15:07034 MEQ/L [facility] UgqzlnqRdboykycl8310-65-03 15:15:004.1 ME[facility]/L[facility] 2012-03-31 15:15:000.5[facility] NxfctfiCkwapxklq0009-62-20 15:15:008[facility] CmxeapyMudwjxbrg6381-01-65 15:15:00* Test Item Value Reference Range Interpretation Comments BUN/CREAT (test code = BUN/CREAT) 16 1 6-25 [facility] OospeyzChzjxduva9144-25-22 15:15:004.9[facility] 2012-03-31 15:15:009.1[facility] StswbjyHliuwfcyi6868-95-37 15:15:0054[facility] FuoqxfaVubelqkxs0834-45-73 15:15:0027[facility] WsivyzdHfekierwj6125-38-26 15:15:0097[facility] RkltaxcRkwllcczv4840-18-43 15:15:002.230[facility] [place] Jyicdoxghq2940-12-24 15:15:0016.0[facility] XvmpzdbPknhzcegrc1093-30-66 15:15:00 47.9[facility] GtwadghEouicpgses6944-18-67 15:15:26513 K/CMMMemorial [facility]ine Apkkslvlyr2676-18-85 15:15:0016.0[facility] YtnqynuVdwejdusea1992-36-18 15:15:00 47.9[facility] KkftsrqNbqjitclnr5077-81-08 15:15:15633 K/CMMMemorial [facility] Syzyrfcaxw7550-08-99 15:15:0016.0[facility] FokholiJnpndtdevm2702-53-76 15:15:00 47.9[facility] SkjghxxNcclasdrdj0919-10-94 15:15:69109 K/[facility]MM[facility] [place] Nfndrsavmb0968-50-63 15:15:00Light YellowMemorial IciguouEarnjlhzzl1828-16-05 15:15:00FewMemorial JjduphyNfeeugndpj0114-42-84 15:15:00Light YellowMemorial JmwbismTcfivkqoid1733-90-57 15:15:00FewMemorial DawvokhFbnjxkziou4799-18-75 15:15:00Light YellowMemorial FtabcneTrsymlrapu2601-83-61 15:15:00FewMemorial DunjczpMhfqqlonb7243-83-55 16:38:86371Ljtksoze KzyjflpSmvqalemv8555-73-38 16:38:0072[facility] GsocsgqZeskwllsa0123-65-50 16:38:0035[facility] [place] Wdmuatvul1290-78-39 16:38:03301Jpqrxkwy IhyrkwgJyqbcyrzu8795-97-79 16:38:342594 [facility] NkkllboXpkrgtvmj7483-53-14 16:38:006.4[facility] 2007-12-28 16:38:001.800[facility] ShorpcrJdlysahih8170-92-71 16:38:62326Lmgymupu RrztjzlTxwnaqkfy6301-05-70 16:38:0072[facility] ZttnoeyRigynzidh6662-78-54 16:38:0035[facility] RrorrvuPpoqfsezx4230-05-34 16:38:70299Ztntfmsb Shine Kzipxpare8202-34-89 16:38:072952Nbkgeect QkncguhTrcfqkryd3163-62-94 16:38:006.4 [facility] NhetkciRfbtbxbwk8879-37-46 16:38:001.800[facility]ann[facility]inal[facility] 2007-12-28 16:38:00YellowMemorial McnhgchUouowtzsmn7833-03-72 16:38:00Many [facility] HmxeacaNfgqvmbuze4608-63-95 16:38:00YellowMemorial HermannUrinalysis 2007-12-28 16:38:00ManyMemorial GffhkfkFmcyeauay1920-87-90 16:45:0017[facility] XvtgschFegtgpqiy5776-75-48 16:45:96349Nqhiivul XcghytgEwdvsrnri2319-30-22 16:45:004.2[facility] CscgbejDvuslydlg7391-26-59 16:45:007[facility] [place] Xfaygvvvp3878-90-93 16:45:000.6[facility] NmuwzbiGqyvzloez8485-68-57 16:45:00* Test Item Value Reference Range Interpretation Comments BUN/CREAT (test code = BUN/CREAT) 12 08-15 [facility] BbxhashBzfyafked9448-23-21 16:45:004.2[facility] 2007-12-14 16:45:009.1[facility] XjzusfoDsqjkawey9793-17-92 16:45:0021[facility] FkxyaiaNdhsivydr3284-01-60 16:45:0030[facility] HbdnqytRlzxglhby2538-47-75 16:45:0063[facility] TkurmklFliknyjqal1417-15-87 16:45:0015.1[facility] [place] Hpajexkjky9032-46-67 16:45:0043.3[facility] EegblpeFfbcdfmlkq6254-05-07 16:45:00 302 K/CMMMemorial YeztqjsAailpzrw7021-73-26 16:45:00* Test Item Value Reference Range Interpretation Comments HELICOB IGG (test code = HELICOB IGG) 3.0 1 <=0.9 [facility] SkunlzaPeswbmmcmf5937-40-01 16:45:00YellowMem[facility] HermannUrinalysis 2007-12-14 16:45:00[facility]ellowMem[facility] [place]
--- OUTSIDE RECORDS SUMMARY | 2020-01-12 10:17 | XMS REPORT | Clinical Summary ---
Author Author [facility] Organization [facility] Address Unknown Phone Unavailable Care Team Providers Care French Lecturer Name Role Phone Nicholas Finley MD PCP Allergies No Known Active Allergies Medications No known medications Active Problems Not on file Surgical History Surgery Date Site/Laterality Comments OTHER SURGICAL HISTORY 02/22/2008 - AV malfunctin o f the brain? 02/20/2009 GALLBLADDER SURGERY BRAIN SURGERY 02/22/2008 - for 'fistula' , ane urysm 02/20/2009 CHOLECYSTECTOMY 02/21/1997 - 02/20/1998 TONSILLECTOMY childhood HYSTEROSCOPY, WITH 03/03/2018 Uterus/N/A Procedure: HYSTEROSCOPY, WITH DILATION AND DILATION AND CURETTAGE OF CURETTAGE OF UTERUS, RES ECTION OF UTERINE POLYPS UTERUS WITH SYMPHION, RESECTION OF CERVICAL POLYPS; Surgeon: Lew Carmona MD; Location: [address]; Service: Obstetrics and Gynecology; Md terality: N/A; Medical History Medical History Date Comments GERD (gastroesophageal reflux disease) Diverticular disease Exercises daily cardio/light weights daily for 1.5hrs Fistula 2008 'in brain' left chel[place] e; aneurysm right side Anesthesia pt-PONV, hypotension; NFHAP PONV (postoperative nausea and vomiting) Family History Medical History Relation Name Comments Diabetes Father Hyperlipidemia Father Hypertension Father Diabetes Mother Hyperlipidemia Mother Hypertension Mother Relation Name Status Comments Father Mother (Age 86) Social History Date Tobacco Use Types Packs/Day Years Used Never Smoker Smokeless Tobacco: Never Used Drinks/Week oz/Week Comments Alcohol Use No Sex Assigned at Date Recorded Not on file Obstetrics History Term Pre Abrt (TAB) (SAB) (Ect) Mult Lvng Comments Grav Para 3 3 3 Date GA Total Labor Labor/2nd/3rd Weight Sex Delivery Anes PTL Meagan A1 A5 Name Clin Outcome Para Para Para Last Filed Vital Signs Not on file Plan of Treatment Health Maintenance Due Date Last Done Comments CERVICAL CANCER SCREENING 1987 COLONOSCOPY SCREENING 02/03/2016 SHINGLES VACCINES (#1) 02/03/2016 BREAST CANCER SCREENING 02/23/2019 02/23/2017 INFLUENZA VACCINE 09/22/2019 Results Not on fileafter 01/10/2019 Insurance Type Payer Benefit Subscriber ID Effective Phone Address Plan / Dates Group PPO BCBS BCBS [id number] 2011-P CHOICE resent PPO/[place] PPO Advance Directives For more information, please contact: [phone] Patient Toy 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
--- OUTSIDE RECORDS SUMMARY | 2020-01-12 10:17 | XMS REPORT | Clinical Summary ---
Author Author [facility] Address Unknown Phone Unavailable Care Team Providers Care International Tax Manager Name Role Phone Eugene Finley PCP Allergies No Known Allergies Medications End Date Status Medication Sig Dispensed Refills Start Date Active diclofenac (CATAFLAM) 50 Take 50 mg by 0 MG tablet mouth daily. Active topiramate (TOPAMAX) 25 Take 25 mg by 0 MG capsule mouth 2 (two) times daily. Active amoxicillin-clavulanate Take 1 tablet 0 (AUGMENTIN) 875-125 mg by mouth 2 per tablet (two) times daily. Active b complex vitamins tablet Take 1 tablet 0 by mouth daily. Active cyanocobalamin (VITAMIN Take 100 mcg 0 B-12) 100 MCG tablet by mouth daily. Active fluticasone (FLONASE) 50 1 spray by 0 mcg/actuation nasal spray Nasal route daily. Active gabapentin (NEURONTIN) Take 300 mg 0 300 MG capsule by mouth 3 (three) times daily. Active meloxicam (MOBIC) 15 MG Take 15 mg by 0 tablet mouth daily. Active Missing or Non-Formulary Phentermine-t 0 Medication opiramate (Qsymia) 3.47mg-23mg . 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 Encounters Care Team Description Date Type Specialty Jad Boss MD Intractable headache, unspecified chroni city pattern, unspecified headache type (Primary Dx) 04/04/2019 Outside Orders Radiology after 01/10/2019 Family History Medical History Relation Name Comments Diabetes Mother Hypertension Mother Relation Name Status Comments Mother Social History Date Tobacco Use Types Packs/Day Years Used Never Smoker Smokeless Tobacco: Never Used Drinks/Week oz/Week Comments Alcohol Use No Sex Assigned at Date Recorded Not on file Last Filed Vital Signs Not on file Plan of Treatment Health Maintenance Due Date Last Done Comments BREAST CANCER SCREENING 1966 COLON CANCER SCREENING 1966 COLONOSCOPY CERVICAL CANCER SCREENING 1987 PAP ONLY (Age 21-65) LIPID PANEL 2011 INFLUENZA VACCINE (#1) 2019 Results Not on fileafter 01/10/2019 Insurance Type Payer Benefit Subscriber ID Effective Phone Address Plan / Dates Group PPO BLUE CROSS/BLUE SHIELD BCBS FED [id number] 2011-P [id number] [place] [phone] Advance Directives For more information, please contact: [phone] Date Inactivated Comments Code Status Date Activated 01/10/2013 7:02 PM All possible means of suppor t, including: cardiac massage, mechanical ventilation, and defibrillation will be used to support life. Code ONE 01/10/2013 11:03 AM
--- OUTSIDE RECORDS SUMMARY | 2020-01-12 10:26 | XMS REPORT | Continuity of Care Document ---
Author Author [facility] t Organization [facility] Address [address] [place] [id number] Phone Unavailable Care Team Providers Care Dredge Deckhand Name Role Phone NATASHA RODRIGUEZ PCP Olga LE Attphys Unavailable Gera SUN, Elvis Street Attphys VICTORINO LORENZO Attphys Unavailable MANDO TORRES Attphys Unavailable RUDI SORIA Attphys Unavailable DAVE ALEXANDER Attphys Unavailable MIKE MELLO Attphys Unavailable [place] TOM Attphys Unavailable Payers Payer Name Policy Type Policy Number Effective Date Expiration Date S nicci BLUE CROSS/BLUE SHIELDBCBS [id number] [address], [place] [address]RIY [id number] 2011 00:00:00 [facility] [employer] [id number] 2011 00:00:0 0 [facility] Problems Condition Name Condition Details Condition Category Status Onset Date Resolution Date Last Treatment Date Treating Clinician Comments Source Vascular headache Vascular headache Disease Active 2017-06-04 00:00:00 [facility] Brain aneurysm Brain aneurysm Disease Active 2017-06-04 00:00:00 [facility] OSTEOARTHRITIS OSTE OARTHRITIS Active 10/30/2013 Condition 11/11/2014 Medical Group Condition Active 2013-10-30 00:00:00 2014-11-11 12:45:50 [facility] Riojas UPPER RESPIRATORY INFECTION UP PER RESPIRATORY INFECTION Active 10/30/2013 Condition 11/11/2014 Medical Group Condition Active 2013-10-30 00:00:00 2014-11-11 12:45:50 [facility] EUSTACHIAN TUBE DYSFUNCTION EU STACHIAN TUBE DYSFUNCTION Active 10/30/2013 Condition 10/30/2013 Medical Group Condition Active 2013-10-30 00:00:00 2013-10-30 17:46:21 [facility] SCREENING, COLON CANCER SCRE ENING, COLON CANCER Active 02/28/2013 Condition 11/11/2014 Medical Group Condition Active 2013-02-28 00:00:00 2014-11-11 12:45:50 [facility] ELEVATED BLOOD PRESSURE ELEV ATED BLOOD PRESSURE Active 02/28/2013 Condition 11/11/2014 Medical Group Condition Active 2013-02-28 00:00:00 2014-11-11 12:45:50 [facility] 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 2013-01-10 00:00:00 [facility] GERD GERD Active 08/14/2008 Condition 11/11/2014 Medical Group Condition Active 2008-08-14 00:00:00 2014-11-11 12:45:50 [facility] WELL ADULT WELL ADULT Active 12/28/2007 Condition 11/11/2014 Medical Group Condition Active 2007-12-28 00:00:00 2014-11-11 1 2:45:50 [facility] History of Past Illness Condition Name Condition Details Condition Category Status Onset Date Resolution Date Last Treatment Date Treating Clinician Comments Source POLYP, GALLBLADDER POLY P, GALLBLADDER Inactive 05/23/2012 Condition 11/11/2014 Medical Group Condition Inactive 2012-05-23 00:00:00 2014-11-11 12:45:50 2014-11-11 12:45:50 [facility] ABDOMINAL PAIN RIGHT UPPER QUADRANT ABDOMINAL PAIN RIGHT UPPER QUADRANT Inactive 05/09/2012 Condition 11/11/2014 Medical Group Condition Inactive 2012-05-09 00:00:00 2014-11-11 12:45:50 2014-11-11 12:45:50 [facility] BACK PAIN, LUMBAR, WITH RADICULOPATHY BACK PAIN, LUMBAR, WITH RADICULOPATHY Inactive 05/09/2012 Condition 11/11/2014 Medical Group Condition Inactive 2012-05-09 00:00:00 2014-11-11 12:45:50 2014-10 12:45:50 [facility] SCREENING FOR BREAST CANCER SC REENING FOR BREAST CANCER Inactive 11/25/2009 Condition 11/11/2014 Medical Group Condition Inacti ve 2009-11-25 00:00:00 2014-11-11 12:45:50 2014-11-11 12:45:50 [facility] ALLERGIC RHINITIS MARGAUX RGIC RHINITIS Inactive 11/25/2009 Condition 11/11/2014 Medical Group Condition Inactive 2009-11-25 00: 00:00 2014-11-11 12:45:50 2014-11-11 12:45:50 [facility] OTITIS EXTERNA OTIT IS EXTERNA Inactive 11/04/2009 Condition 11/11/2014 Medical Group Condition Inactive 2009-11-04 00: 00:00 2014-11-11 12:45:50 2014-11-11 12:45:50 [facility] Riojas OTALGIA OTAL FOSTER Inactive 07/15/2009 Condition 11/11/2014 Medical Group Condition Inactive 2009-07-15 00:00:00 2014-11-11 12:45:50 2014-11-11 12:45:50 [facility] TINNITUS TINN ITUS Inactive 07/15/2009 Condition 11/11/2014 Medical Group Condition Inactive 2009-07-15 00:00:00 2014-11-11 12:45:5 0 2014-11-11 12:45:50 [facility] Riojas ABDOMINAL PAIN RIGHT LOWER QUADRANT ABDOMINAL PAIN RIGHT LOWER QUADRANT Inactive 07/06/2009 Condition 11/11/2014 Medical Group Condition Inactive 2009-07-06 00:00:00 2014-11-11 12:45:50 2014-11-11 12:45:50 [facility] ECZEMA, HANDS ECZE MA, HANDS Inactive 07/01/2009 Condition 11/11/2014 Medical Group Condition Inactive 2009-07-01 00: 00:00 2014-11-11 12:45:50 2014-11-11 12:45:50 [facility] OTITIS MEDIA OTIT IS MEDIA Inactive 04/03/2009 Condition 11/11/2014 Medical Group Condition Inactive 2009-04-03 00: 00:00 2014-11-11 12:45:50 2014-11-11 12:45:50 Jefferson Riojas OVARIAN CYST, RIGHT OVAR IDANIA CYST, RIGHT Inactive 08/14/2008 Condition 11/11/2014 Medical Group Condition Inactive 2008-08-14 00:00:00 2014-11-11 12:45:50 2014-11-11 12:45:50 [facility] BACK PAIN Inactive 08/14/2008 Condition 11/11/2014 Medical Group Condition Inactive 2008-08-14 00:00:00 2014-11-11 12:45 :50 2014-11-11 12:45:50 [facility] ABDOMINAL PAIN, GENERALIZED AB DOMINAL PAIN, GENERALIZED Inactive 08/12/2008 Condition 11/11/2014 Medical Group Condition Inacti ve 2008-08-12 00:00:00 2014-11-11 12:45:50 2014-11-11 12:45:50 [facility] LOW BACK PAIN LOW BACK PAIN Inactive 08/12/2008 Condition 11/11/2014 Medical Group Condition Inactive 2008-08-12 00: 00:00 2014-11-11 12:45:50 2014-11-11 12:45:50 [facility] H. PYLORI GASTRITIS H. P YLORI GASTRITIS Inactive 12/28/2007 Condition 11/11/2014 Medical Group Condition Inactive 2007-12-28 00:00:00 2014-11-11 12:45:50 2014-11-11 12:45:50 M [facility] Allergies, Adverse Reactions, Alerts Allergy Name Allergy Type Status Severity Reaction(s) Onset Date Inacti ve Date Treating Clinician Comments Source IV CONTRAST Propensity to adverse reactions Active 2018 00:00:00 [facility] Family History Family Member Diagnosis Comments Start Date Stop Date Source Natural father Diabetes [facility] Natural father Hyperlipidemia [place] [facility] Natural father Hypertension [facility] Natural mother Diabetes [facility] Natural mother Hyperlipidemia [place] Natural mother Hypertension [place] [facility] Natural mother Diabetes [facility] Natural mother Hypertension [facility] Social History Social Habit Start Date Stop Date Quantity Comments Source Sex Assigned At [facility] Tobacco use and exposure 2017-12-25 00:00:00 2017-12-25 00:00:00 Denys jiang used [facility] Alcohol intake 2017-12-25 00:00:00 2017-12-25 00:00:00 [facility] Sm[facility] Status Start Date Stop Date Source Never smoker [facility] [place] Medications Ordered Medication Name Filled Medication Name Start Date Stop Da te Current Medication? Ordering Clinician Indication Dosage Frequency Signature (SIG) Comments Components Source topiramate (TOPAMAX) 25 MG capsule 2017-06-03 22:54:23 Yes 25mg Q.5D Take 25 mg by mouth 2 (two) times daily. [facility] Missing or Non-Formulary Medication 2017-06-03 22:54:23 Yes Phentermine-topiramate (Qsymia) 3.47mg-23mg . [facility] diclofenac (CATAFLAM) 50 MG tablet 2017-06-03 22:54:01 Yes 50mg QD Take 50 mg by mouth daily. [facility] amoxicillin-clavulanate (AUGMENTIN) 875-125 mg per tablet 2017-06-03 22:54:01 Yes 1{tbl} Q.5D Take 1 tablet by mouth 2 (two) t imes daily. [facility] b complex vitamins tablet 2017-06-03 22:54:01 Yes 1{tbl} QD Take 1 tablet by mouth daily. [facility] cyanocobalamin (VITAMIN B-12) 100 MCG tablet 2017-06-03 22:54:01 Yes 100ug QD Take 100 mcg by mouth daily. [facility] fluticasone (FLONASE) 50 mcg/actuation nasal spray 2017-05 22:54:01 Yes 1{spray} QD 1 spray by Nasal route daily. [facility] gabapentin (NEURONTIN) 300 MG capsule 2017-06-03 22:54:01 Yes 300mg [id number] Take 300 mg by mouth 3 (three) times daily. [facility] meloxicam (MOBIC) 15 MG tablet 2017-06-03 22:54:01 Yes 15mg QD Take 15 mg by mouth daily. [facility] LEVAQUIN 500 MG TABS 2014-01-24 00:00:00 No 1 tablet daily [facility] LEVAQUIN 500 MG TABS 2014-01-24 00:00:00 Yes 1 tablet daily [facility] PREDNISONE 20 MG TABS 2013-10-30 00:00:00 No 2 tablets daily X 5 days [facility] MOBIC 15 MG TABS 2013-10-30 00:00:00 Yes 1 tablet daily as needed for pain [facility] PREDNISONE 20 MG TABS 2013-10-30 00:00:00 No 2 tablets daily X 5 days [facility] PREDNISONE 20 MG TABS 2013-10-30 00:00:00 Yes 2 tablets daily X 5 days [facility] AZITHROMYCIN 250 MG TABS 2013-10-10 00:00:00 No 2 tablets daily for 1 day, then 1 tablet daily for 4 days [facility] ANTIPYRINE-BENZOCAINE 5.4-1.4 % SOLN 2013-10-10 00:00:00 No Instill 2-4 drops in affected ear every 6 hours. [facility] ANTIPYRINE-BENZOCAINE 5.4-1.4 % SOLN 2013-10-10 00:00:00 No Instill 2-4 drops in affected ear every 6 hours. [facility] LEVAQUIN TABS 500 MG 2013-09-28 00:00:00 No 1 tablet daily [facility] LIDOCAINE VISCOUS 2 % SOLN 2013-09-28 00:00:00 No 5-10 ml gargle and spit 4 times a day as needed for throat pain [facility] BROMFED DM 30-2-10 MG/5ML SYRP 2013-09-28 00:00:00 No Take one teaspoon (5 cc each) 3 times a day for coughing. [facility] LEVAQUIN TABS 500 MG 2013-09-28 00:00:00 No 1 tablet daily [facility] LIDOCAINE VISCOUS 2 % SOLN 2013-09-28 00:00:00 No 5-10 ml gargle and spit 4 times a day as needed for throat pain [facility] DICLOFENAC SODIUM 75 MG TBEC 2012-05-09 00:00:00 Yes 1 po bid prn pain [facility] PREDNISONE 20 MG TABS 2012-05-09 00:00:00 No 2 tabs po qd X 5 days [facility] DICLOFENAC SODIUM 75 MG TBEC 2012-05-09 00:00:00 Yes 1 po bid prn pain [facility] PREDNISONE 20 MG TABS 2012-05-09 00:00:00 No 2 tabs po qd X 5 days [facility] PREDNISONE 20 MG TABS 2012-05-09 00:00:00 No 2 tabs po qd X 5 days [facility] DICLOFENAC SODIUM 75 MG TBEC 2012-05-09 00:00:00 [...] No 1 po bid prn pain [facility] PREDNISONE 20 MG TABS 2012-05-09 00:00:00 No 2 tabs po qd X 5 days [facility] ZITHROMAX Z-COLT TABS 2009-11-25 00:00:00 No as directed for infection [facility] CETRAXAL 0.2 % SOLN 2009-11-04 00:00:00 No BID for 7 days [facility] AURALGAN SOLN 2009-07-01 00:00:00 No 2 gtts in affected ear qid prn pain [facility] MOXATAG 775 MG [id number] 2009-07-01 00:00:00 No 1 po qd [facility] [place] TRIAMCINOLONE ACETONIDE 0.5 % CREA 2009-07-01 00:00:00 No apply to rash bid prn itching (korean label) [facility] [place] DICLOFENAC SODIUM 75 MG TBEC 2009-04-03 00:00:00 No 1 po bid prn pain [facility] DICLOFENAC SODIUM 75 MG TBEC 2009-04-03 00:00:00 No 1 po bid prn pain [facility] DICLOFENAC SODIUM 75 MG TBEC 2009-04-03 00:00:00 No 1 po bid prn pain [facility] DICLOFENAC SODIUM 75 MG TBEC 2009-04-03 00:00:00 No 1 po bid prn pain [facility] DICLOFENAC SODIUM 75 MG TBEC 2009-04-03 00:00:00 No 1 po bid prn pain [facility] HYOSCYAMINE SULFATE 0.125 MG TABS 2008-08-14 00:00:00 No 1 po q4h prn pain [facility] PRILOSEC OTC 20 MG TBEC 2008-08-14 00:00:00 No 1 po qd [facility] HYOSCYAMINE SULFATE 0.125 MG TABS 2008-08-14 00:00:00 No 1 po q4h prn pain [facility] HYOSCYAMINE SULFATE 0.125 MG TABS 2008-08-14 00:00:00 No 1 po q4h prn pain [facility] HYOSCYAMINE SULFATE 0.125 MG TABS 2008-08-14 00:00:00 No 1 po q4h prn pain [facility] IBUPROFEN 800 MG TABS 2008-08-06 00:00:00 No 1 po q8h prn pain [facility] FLEXERIL 5 MG TABS 2008-08-06 00:00:00 No 1 po QHS prn spasm [facility] IBUPROFEN 800 MG TABS 2008-08-06 00:00:00 No 1 po q8h prn pain [facility] IBUPROFEN 800 MG TABS 2008-08-06 00:00:00 No 1 po q8h prn pain [facility] IBUPROFEN 800 MG TABS 2008-08-06 00:00:00 No 1 po q8h prn pain [facility] IBUPROFEN 800 MG TABS 2008-08-06 00:00:00 No 1 po q8h prn pain [facility] IBUPROFEN 800 MG TABS 2008-08-06 00:00:00 No 1 po q8h prn pain [facility] IBUPROFEN 800 MG TABS 2008-08-06 00:00:00 No 1 po q8h prn pain [facility] HELIDAC MISC 2007-12-28 00:00:00 No 1 dose po qid x 2wks [facility] Vital Signs Vital Name Observation Time Observation Value Comments Source Height 2014-01-24 21:43:03 [facility] Respitory Rate 2014-01-24 21:43:03 [facility] Weight 2014-01-24 21:43:03 [facility] Temperature Oral (F) 2014-01-24 21:43:03 98.9 F [facility] Systolic (mm Hg) 2014-01-24 21:43:03 [facility] [place] Diastolic (mm Hg) 2014-01-24 21:43:03 [facility] Heart Rate 2014-01-24 21:43:03 [facility] Height 2013-10-30 22:46:21 [facility] Respitory Rate 2013-10-30 22:46:21 [facility] [place] Weight 2013-10-30 22:46:21 [facility] Temperature Oral (F) 2013-10-30 22:46:21 97.7 F [facility] Systolic (mm Hg) 2013-10-30 22:46:21 [facility] Diastolic (mm Hg) 2013-10-30 22:46:21 [facility] [place] Heart Rate 2013-10-30 22:46:21 [facility] Weight 2013-10-10 12:20:00 [facility] Temperature Oral (F) 2013-10-10 12:20:00 97.6 F [facility] Height 2013-10-10 12:20:00 [facility] Systolic (mm Hg) 2013-10-10 12:20:00 [facility] [place] Diastolic (mm Hg) 2013-10-10 12:20:00 [facility] [place] Heart Rate 2013-10-10 12:20:00 [facility] Weight 2013-09-28 12:10:40 [facility] Temperature Oral (F) 2013-09-28 12:10:40 97.5 F [facility] Systolic (mm Hg) 2013-09-28 12:10:40 [facility] [place] Diastolic (mm Hg) 2013-09-28 12:10:40 [facility] Weight 2013-06-01 15:13:44 [facility] Temperature Oral (F) 2013-06-01 15:13:44 98.5 F [facility] Heart Rate 2013-06-01 15:13:44 [facility] Systolic (mm Hg) 2013-06-01 15:13:44 [facility] [place] Diastolic (mm Hg) 2013-06-01 15:13:44 [facility] Weight 2013-05-18 15:20:20 [facility] Temperature Oral (F) 2013-05-18 15:20:20 98.0 F [facility] Heart Rate 2013-05-18 15:20:20 [facility] Systolic (mm Hg) 2013-05-18 15:20:20 [facility] [place] Diastolic (mm Hg) 2013-05-18 15:20:20 [facility] Respitory Rate 2013-03-27 21:30:20 [facility] Temperature Oral (F) 2013-03-27 21:30:20 96.9 F [facility] Systolic (mm Hg) 2013-03-27 21:30:20 [facility] Diastolic (mm Hg) 2013-03-27 21:30:20 [facility] Heart Rate 2013-03-27 21:30:20 [facility] Weight 2013-03-27 21:30:20 [facility] Weight 2013-02-28 14:00:52 [facility] Temperature Oral (F) 2013-02-28 14:00:52 97.5 F [facility] Respitory Rate 2013-02-28 14:00:52 [facility] Systolic (mm Hg) 2013-02-28 14:00:52 [facility] [place] Diastolic (mm Hg) 2013-02-28 14:00:52 [facility] Heart Rate 2013-02-28 14:00:52 [facility] Weight 2012-05-23 14:57:02 [facility] Temperature Oral (F) 2012-05-23 14:57:02 98.1 F [facility] Heart Rate 2012-05-23 14:57:02 [facility] Systolic (mm Hg) 2012-05-23 14:57:02 [facility] Diastolic (mm Hg) 2012-05-23 14:57:02 [facility] [place] Weight 2012-05-09 19:49:31 [facility] Temperature Oral (F) 2012-05-09 19:49:31 97.9 F [facility] Systolic (mm Hg) 2012-05-09 19:49:31 [facility] [place] Diastolic (mm Hg) 2012-05-09 19:49:31 [facility] Heart Rate 2012-05-09 19:49:31 [facility] Weight 2012-03-31 14:30:13 [facility] Temperature Oral (F) 2012-03-31 14:30:13 98.5 F [facility] Systolic (mm Hg) 2012-03-31 14:30:13 [facility] Diastolic (mm Hg) 2012-03-31 14:30:13 [facility] Heart Rate 2012-03-31 14:30:13 [facility] Height 2009-11-25 15:12:13 [facility] Weight 2009-11-25 15:12:13 [facility] Respitory Rate 2009-11-25 15:12:13 [facility] [place] Temperature Oral (F) 2009-11-25 15:12:13 97.7 F [facility] Heart Rate 2009-11-25 15:12:13 [facility] Systolic (mm Hg) 2009-11-25 15:12:13 [facility] [place] Diastolic (mm Hg) 2009-11-25 15:12:13 [facility] [place] Height 2009-11-04 14:13:30 [facility] Weight 2009-11-04 14:13:30 [facility] Respitory Rate 2009-11-04 14:13:30 [facility] [place] Temperature Oral (F) 2009-11-04 14:13:30 97.9 F [facility] Heart Rate 2009-11-04 14:13:30 [facility] Systolic (mm Hg) 2009-11-04 14:13:30 [facility] [place] Diastolic (mm Hg) 2009-11-04 14:13:30 [facility] [place] Height 2009-07-01 20:37:10 [facility] Weight 2009-07-01 20:37:10 [facility] Temperature Oral (F) 2009-07-01 20:37:10 97.4 F [facility] Respitory Rate 2009-07-01 20:37:10 [facility] Heart Rate 2009-07-01 20:37:10 [facility] Systolic (mm Hg) 2009-07-01 20:37:10 [facility] Diastolic (mm Hg) 2009-07-01 20:37:10 [facility] Height 2009-04-03 17:02:50 [facility] Weight 2009-04-03 17:02:50 [facility] Temperature Oral (F) 2009-04-03 17:02:50 98.4 F [facility] Respitory Rate 2009-04-03 17:02:50 [facility] [place] Heart Rate 2009-04-03 17:02:50 [facility] Systolic (mm Hg) 2009-04-03 17:02:50 [facility] Diastolic (mm Hg) 2009-04-03 17:02:50 [facility] [place] Height 2008-08-14 19:30:50 [facility] Weight 2008-08-14 19:30:50 [facility] Temperature Oral (F) 2008-08-14 19:30:50 97.7 F [facility] Respitory Rate 2008-08-14 19:30:50 [facility] [place] Heart Rate 2008-08-14 19:30:50 [facility] Systolic (mm Hg) 2008-08-14 19:30:50 [facility] [place] Diastolic (mm Hg) 2008-08-14 19:30:50 [facility] [place] Height 2008-08-06 20:47:51 [facility] Weight 2008-08-06 20:47:51 [facility] Temperature Oral (F) 2008-08-06 20:47:51 97.4 F [facility] Respitory Rate 2008-08-06 20:47:51 [facility] Heart Rate 2008-08-06 20:47:51 [facility] Systolic (mm Hg) 2008-08-06 20:47:51 [facility] Diastolic (mm Hg) 2008-08-06 20:47:51 [facility] Weight 2007-12-28 15:17:53 [facility] Respitory Rate 2007-12-28 15:17:53 [facility] [place] Temperature Oral (F) 2007-12-28 15:17:53 98.5 F [facility] Heart Rate 2007-12-28 15:17:53 [facility] Systolic (mm Hg) 2007-12-28 15:17:53 [facility] [place] Diastolic (mm Hg) 2007-12-28 15:17:53 [facility] [place] Height 2007-12-14 15:19:52 [facility] Weight 2007-12-14 15:19:52 [facility] Temperature Oral (F) 2007-12-14 15:19:52 97.6 F [facility] Respitory Rate 2007-12-14 15:19:52 [facility] Heart Rate 2007-12-14 15:19:52 [facility] Systolic (mm Hg) 2007-12-14 15:19:52 [facility] [place] Diastolic (mm Hg) 2007-12-14 15:19:52 [facility] Procedures Procedure Date / Time Performed Performing Clinician [facility] Computed tomography of abdomen and pelvis with contrast 2018 00:00:00 MIKI OAKES [facility] mammogram 2008-08-06 20:47:51 [facility] Plan of Care Planned Activity Planned Date Details Comments Source Future Scheduled Test 2019-10-23 00:00:00 INFLUENZA VACCINE (#1) [code = INFLUENZA VACCINE (#1)] [facility] Future Scheduled Test 2019-09-22 00:00:00 INFLUENZA VACCINE [code = INFLUENZA VACCINE] [facility] Scheduled Test 2019-02-23 00:00:00 BREAST CANCER SCRE ENING [code = BREAST CANCER SCREENING] [facility] Scheduled Test 2016-02-03 00:00:00 COLONOSCOPY SCREEN ING [code = COLONOSCOPY SCREENING] [facility] Scheduled Test 2016-02-03 00:00:00 SHINGLES VACCINES (#1) [code = SHINGLES VACCINES (#1)] [facility] Scheduled Test 2011 00:00:00 Lipid panel (proce dure) [code = 33594907] [facility] Future Scheduled Test 1987 00:00:00 Screening for demetrius gnant neoplasm of cervix (procedure) [code = 824988288] [facility] Future Scheduled Test 1987 00:00:00 Screening for demetrius gnant neoplasm of cervix (procedure) [code = 381257076] [facility] Future Scheduled Test 1966 00:00:00 Screening for demetrius gnant neoplasm of breast (procedure) [code = 357536808] [facility] Future Scheduled Test 1966 00:00:00 Screening for demetrius gnant neoplasm of colon (procedure) [code = 869146201] [facility] Encounters Start Date/Time End Date/Time Encounter Type Admission Type Attendi [facility] Care Department Encounter ID Source 2019-03-02 14:19:00 2019-03-02 17:15:00 Departed Emergency Room 1 VICTORINO LORENZO [facility] [id number] [facility] 2019-01-22 18:21:00 2019-01-23 00:32:00 Departed Emergency Room 1 MANDO TORRES [facility] [id number] [facility] 2018-05-30 15:27:00 2018-05-30 15:27:00 Outpatient [facility] 2018-05-12 15:36:00 2018-05-12 15:36:00 Outpatient [facility] Results Test Description Test Time Test Comments Results Result Comments Source CT ABD/PEL WO CONTRAST-HOPD 2020-01-11 21:02:[facility] 1965 Sex: [place] [address] Patient Name: LUIS LUEVANO MR #: [id number] : 1965 Age/Sex: 54/F Req #: [id number] Adm Physician: Ordered by: VICTORINO LE MD Report #: [id number] Location: [facility] Room/Bed: Procedure: [id number] HOPD/CT ABD/PEL WO CONTRAST-HOPD Exam Date: 01/11/20 [...] TO: VICTORINO LE MD L SPINE 2-3 [facility] 2019-03-02 16:26:00 [facility] [address] [place] [address] Patient Name: LUIS LUEVANO MR #: [id number] : 1965 Age/Sex: 54/F Req #: [id number] Adm Physician: Ordered by: VICTORINO LORENZO MD Report #: [id number] Location: [facility] Room/Bed: Procedure: [id number] HOPD/L SPINE 2-3 VE[facility] - HOPD Exam [...] LORENZO MD CT BRAIN WO-HOPD 2019-03-02 16:18:00 [place] [address] Patient Name: LUIS LUEVANO MR #: [id number] : 1965 Age/Sex: 54/F Req #: [id number] Adm Physician: Ordered by: VICTORINO LORENZO MD Report #: [id number] Location: [facility] Room/Bed: Procedure: [id number] HOPD/CT BRAIN WO-HOPD Exam Date: 03/02/19 Exam [...] LORENZO MD CHEST SINGLE (PORTABLE) 2019-01-22 23:35:00 [place] [address] Patient Name: LUIS LUEVANO MR #: [id number] : 1965 Age/Sex: 53/F Req #: [id number] Adm Physician: Ordered by: MIKI OAKES MD Report #: [id number] Location: ER Room/Bed: Procedure: [id number] DX/CHEST SINGLE (PORTABLE) Exam Date: 01/22/19 Exam [...] OAKES MD CT ABDOMEN/PELVIS W 2019-01-22 23:27:00 [place] [address] Patient Name: LUIS LUEVANO MR #: [id number] : 1965 Age/Sex: 53/F Req #: [id number] Adm Physician: Ordered by: MIKI OAKES MD Report #: [id number] Location: ER Room/Bed: Procedure: [id number] CT/CT ABDOMEN/PELVIS W Exam Date: 01/22/19 Exam [...] 11:35 PM Dictated By: JOÃO DAVISON MD [id number] Transcribed By: IVONNE on 01/22/19 [id number] COPY TO: MIKI OAKES MD Creatine Kin[employer] MB 2019-01-22 23:19:00 Test Item Creatine Kinase MB (test code = 69323-7) 1.40 [facility].0 [id number] 23:19:00* Test Item Value Reference Range Interpretation Comments Troponin I (test code = [id number]) 0.019 0-0.300 [facility] HospitalCreatine Kinase [id number] 23:19:00* Test Item Value Reference Range Interpretation Comments Creatine Kinase MB (test code = 44909-0) 1.40 0-5.0 [facility] HospitalTropon [id number] 23:19:00* Test Item Value Reference Range Interpretation Comments Troponin I (test code = YMV5319) 0.019 0-0.300 [facility] HospitalCreatine Lcmbra7789-24-90 22:39:00* Test Item Value Reference Range Interpretation Comments Creatine Kinase (test code = 2157-6) 124 29-168 [facility] HospitalCreatine Drjbeh5855-80-11 22:39:00* Test Item Value Reference Range Interpretation Comments Creatine Kinase (test code = 2157-6) 124 29-168 [facility] HospitalAmylase Bfbzw5939-85-00 22:28:00* Test Item Value Reference Range Interpretation Comments Amylase Level (test code = 1798-8) 41 25-125 [facility] HospitalLipase2019-12-02 22:28:00* Test Item Value Reference Range Interpretation Comments Lipase (test code = 3040-3) 78 [facility] HospitalAmylase Gdels2612-90-45 22:28:00* Test Item Value Reference Range Interpretation Comments Amylase Level (test code = 1798-8) 41 25-125 [facility] HospitalLipase2019-12-02 22:28:00* Test Item Value Reference Range Interpretation Comments Lipase (test code = 3040-3) 28 -78 [facility] Jlaly3499-28-72 22:27:00* Test Item Value Reference Range Interpretation Comments Sodium Level (test code = 2951-2) 136 136-145 [facility] HospitalPotassium Mjygo6824-71-89 22:27:00* Test Item Value Reference Range Interpretation Comments Potassium Level (test code = 2823-3) 3.6 3.5-5.1 [facility] HospitalChloride Fzppe5178-18-00 22:27:00* Test Item Value Reference Range Interpretation Comments Chloride Level (test code = 2075-0) 102 98-107 [facility] HospitalCarbon Dioxide Xkkev3365-15-30 22:27:00* Test Item Value Reference Range Interpretation Comments Carbon Dioxide Level (test code = 2028-9) 25 22-29 [facility] HospitalAnion Kvb9427-01-35 22:27:00* Test Item Value Reference Range Interpretation Comments Anion Gap (test code = 24288-1) 12.6 8-16 [facility] HospitalBlood Urea Qfwmjndu8867-91-49 22:27:00* Test Item Value Reference Range Interpretation Comments Blood Urea Nitrogen (test code = 3094-0) 13 7-26 [facility] HospitalCreatinine2019-12-02 22:27:00* Test Item Value Reference Range Interpretation Comments Creatinine (test code = 2160-0) 0.69 0.57-1.11 [facility] HospitalBUN/Creatinine Apccb6091-71-96 22:27:00* Test Item Value Reference Range Interpretation Comments BUN/Creatinine Ratio (test code = 3097-3) 19 6-25 [facility] HospitalEstimat Glomerular Filtration Rate 2019-01-22 22:27:00* Test Item Value Reference Range Interpretation Comments Estimat Glomerular Filtration Rate (test code = 381772848) > 60 >60 Ranges were taken from the National Kidney Disease Education Program and the [facility] literature.Reference ranges:60 or greater: Ogzpkr15-18 ( for 3 consecutive months): Chronic kidney disease 15 or less: Kidney failureStephens [facility] HospitalGlucose Tzgee6809-59-65 22:27:00* Test Item Value Reference Range Interpretation Comments Glucose Level (test code = MEE4190) 103 74-118 [facility] HospitalCalcium Lsdxb4859-12-08 22:27:00* Test Item Value Reference Range Interpretation Comments Calcium Level (test code = 69826-7) 10.4 8.4-10.2 H [facility] HospitalTotal Imiehdftx9633-05-13 22:27:00* Test Item Value Reference Range Interpretation Comments Total Bilirubin (test code = 1975-2) 0.9 0.2-1.2 [facility] HospitalAspartate Amino Transf (AST/SGOT) 2019-01-22 22:27:00* Test Item Value Reference Range Interpretation Comments Aspartate Amino Transf (AST/SGOT) (test code = Aspartate Amino Transf (AST/SGOT)) 19 5-34 [facility] HospitalAlanine Aminotransferase (ALT/SGPT) 2019-01-22 22:27:00* Test Item Value Reference Range Interpretation Comments Alanine Aminotransferase (ALT/SGPT) (test code = 1742-6) 22 0-55 [facility] HospitalTotal Bbrhbli8297-11-86 22:27:00* Test Item Value Reference Range Interpretation Comments Total Protein (test code = 2885-2) 7.7 6.5-8.1 [facility] HospitalAlbumin2019-12-02 22:27:00* Test Item Value Reference Range Interpretation Comments Albumin (test code = 1751-7) 4.4 3.5-5.0 [facility] HospitalGlobulin2019-12-02 22:27:00* Test Item Value Reference Range Interpretation Comments Globulin (test code = 69613-9) 3.3 2.3-3.5 [facility] HospitalAlbumin/Globulin Pgkqv1824-79-84 22:27:00 * Test Item Value Reference Range Interpretation Comments Albumin/Globulin Ratio (test code = 1759-0) 1.3 0.8-2.0 [facility] HospitalAlkaline Fkfzgezlaqz6793-31-93 22:27:00* Test Item Value Reference Range Interpretation Comments Alkaline Phosphatase (test code = 6768-6) 76 40-150 [facility]odium Pcrfa7107-79-35 22:27:00* Test Item Value Reference Range Interpretation Comments Sodium Level (test code = 2951-2) 136 136-145 [facility] HospitalPotassium Wsymn2510-89-99 22:27:00* Test Item Value Reference Range Interpretation Comments Potassium Level (test code = 2823-3) 3.6 3.5-5.1 [facility] HospitalChloride Qbpoa3784-40-49 22:27:00* Test Item Value Reference Range Interpretation Comments Chloride Level (test code = 2075-0) 102 98-107 [facility] HospitalCarbon Dioxide Jlyyy8780-35-03 22:27:00* Test Item Value Reference Range Interpretation Comments Carbon Dioxide Level (test code = 2028-9) 25 22-29 [facility] HospitalAnion Dfh5921-89-71 22:27:00* Test Item Value Reference Range Interpretation Comments Anion Gap (test code = 75628-3) 12.6 8-16 [facility] HospitalBlood Urea Xyvyxywf3077-46-34 22:27:00* Test Item Value Reference Range Interpretation Comments Blood Urea Nitrogen (test code = 3094-0) 13 7-26 [facility] HospitalCreatinine2019-12-02 22:27:00* Test Item Value Reference Range Interpretation Comments Creatinine (test code = 2160-0) 0.69 0.57-1.11 [facility] HospitalBUN/Creatinine Mwyqo2246-65-78 22:27:00* Test Item Value Reference Range Interpretation Comments BUN/Creatinine Ratio (test code = 3097-3) 19 6-25 [facility] HospitalEstimat Glomerular Filtration Rate 2019-01-22 22:27:00* Test Item Value Reference Range Interpretation Comments Estimat Glomerular Filtration Rate (test code = 046741280) > 60 >60 Ranges were taken from the National Kidney Disease Education Program and the [facility] literature.Reference ranges:60 or greater: Tgtplt30-36 ( for 3 consecutive months): Chronic kidney disease 15 or less: Kidney failureStephens Memorial HospitalGlucose Yckia8774-29-81 22:27:00* Test Item Value Reference Range Interpretation Comments Glucose Level (test code = LDW1467) 103 74-118 [facility] HospitalCalcium Ltvpn5693-74-02 22:27:00* Test Item Value Reference Range Interpretation Comments Calcium Level (test code = 28904-0) 10.4 8.4-10.2 H [facility] HospitalTotal Bwamxbhty6001-08-13 22:27:00* Test Item Value Reference Range Interpretation Comments Total Bilirubin (test code = 1975-2) 0.9 0.2-1.2 [facility] HospitalAspartate Amino Transf (AST/SGOT) 2019-01-22 22:27:00* Test Item Value Reference Range Interpretation Comments Aspartate Amino Transf (AST/SGOT) (test code = Aspartate Amino Transf (AST/SGOT)) 19 5-34 [facility] HospitalAlanine Aminotransferase (ALT/SGPT) 2019-01-22 22:27:00* Test Item Value Reference Range Interpretation Comments Alanine Aminotransferase (ALT/SGPT) (test code = 1742-6) 22 0-55 [facility] HospitalTotal Mhamtuv1592-99-79 22:27:00* Test Item Value Reference Range Interpretation Comments Total Protein (test code = 2885-2) 7.7 6.5-8.1 [facility] HospitalAlbumin2019-12-02 22:27:00* Test Item Value Reference Range Interpretation Comments Albumin (test code = 1751-7) 4.4 3.5-5.0 [facility] HospitalGlobulin2019-12-02 22:27:00* Test Item Value Reference Range Interpretation Comments Globulin (test code = 55516-0) 3.3 2.3-3.5 [facility] HospitalAlbumin/Globulin Lcucf6005-37-79 22:27:00 * Test Item Value Reference Range Interpretation Comments Albumin/Globulin Ratio (test code = 1759-0) 1.3 0.8-2.0 [facility] HospitalAlkaline Oimklthzyuo4211-94-18 22:27:00* Test Item Value Reference Range Interpretation Comments Alkaline Phosphatase (test code = 6768-6) 76 40-150 [facility] HospitalWhite Blood Wkndo0189-08-53 21:08:00* Test Item Value Reference Range Interpretation Comments White Blood Count (test code = 6690-2) 8.08 4.8-10.8 [facility] HospitalRed Blood Ahwuo2416-01-55 21:08:00* Test Item Value Reference Range Interpretation Comments Red Blood Count (test code = 789-8) 4.74 3.6-5.1 [facility] HospitalHemoglobin2019-12-02 21:08:00* Test Item Value Reference Range Interpretation Comments Hemoglobin (test code = 92367-4) 15.6 12.0-16.0 [facility] HospitalHematocrit2019-12-02 21:08:00* Test Item Value Reference Range Interpretation Comments Hematocrit (test code = 4544-3) 45.9 34.2-44.1 H [facility] HospitalMean Corpuscular Nccraw1849-92-88 21:08:00* Test Item Value Reference Range Interpretation Comments Mean Corpuscular Volume (test code = 787-2) 96.8 81-99 [facility] HospitalMean Corpuscular Wauxkkkunu6845-68-98 21:08:00* Test Item Value Reference Range Interpretation Comments Mean Corpuscular Hemoglobin (test code = 785-6) 32.9 28-32 H [facility] HospitalMean Corpuscular Hemoglobin Concent 2019-01-22 21:08:00* Test Item Value Reference Range Interpretation Comments Mean Corpuscular Hemoglobin Concent (test code = 786-4) 34.0 31-35 [facility] HospitalRed Cell Distribution Dwimb2116-80-38 21:08:00* Test Item Value Reference Range Interpretation Comments Red Cell Distribution Width (test code = 71964-1) 11.9 11.7 -14.4 [facility] HospitalPlatelet Pqhlj8173-47-32 21:08:00* Test Item Value Reference Range Interpretation Comments Platelet Count (test code = 777-3) 177 140-360 [facility] HospitalNeutrophils (%) (Auto)2019-01-22 21:08:00 * Test Item Value Reference Range Interpretation Comments Neutrophils (%) (Auto) (test code = 69527-2) 52.1 38.7-80.0 [facility] HospitalLymphocytes (%) (Auto)2019-01-22 21:08:00 * Test Item Value Reference Range Interpretation Comments Lymphocytes (%) (Auto) (test code = 736-9) 41.0 18.0-39.1 H [facility] HospitalMonocytes (%) (Auto)2019-01-22 21:08:00* Test Item Value Reference Range Interpretation Comments Monocytes (%) (Auto) (test code = 5905-5) 5.3 4.4-11.3 [facility] HospitalEosinophils (%) (Auto)2019-01-22 21:08:00 * Test Item Value Reference Range Interpretation Comments Eosinophils (%) (Auto) (test code = 713-8) 1.2 0.0-6.0 [facility] HospitalBasophils (%) (Auto)2019-01-22 21:08:00* Test Item Value Reference Range Interpretation Comments Basophils (%) (Auto) (test code = 706-2) 0.2 0.0-1.0 [facility] HospitalIM GRANULOCYTES %2019-01-22 21:08:00* Test Item Value Reference Range Interpretation Comments IM GRANULOCYTES % (test code = IM GRANULOCYTES %) 0.2 0.0- 1.0 [facility] HospitalNeutrophils # (Auto)2019-01-22 21:08:00* Test Item Value Reference Range Interpretation Comments Neutrophils # (Auto) (test code = 751-8) 4.2 2.1-6.9 [facility] HospitalLymphocytes # (Auto)2019-01-22 21:08:00* Test Item Value Reference Range Interpretation Comments Lymphocytes # (Auto) (test code = 22750-3) 3.3 1.0-3.2 H [facility] HospitalMonocytes # (Auto)2019-01-22 21:08:00* Test Item Value Reference Range Interpretation Comments Monocytes # (Auto) (test code = 742-7) 0.4 0.2-0.8 [facility] HospitalEosinophils # (Auto)2019-01-22 21:08:00* Test Item Value Reference Range Interpretation Comments Eosinophils # (Auto) (test code = 711-2) 0.1 0.0-0.4 [facility] HospitalBasophils # (Auto)2019-01-22 21:08:00* Test Item Value Reference Range Interpretation Comments Basophils # (Auto) (test code = 704-7) 0.0 0.0-0.1 [facility] HospitalAbsolute Immature Granulocyte (auto 2019-01-22 21:08:00* Test Item Value Reference Range Interpretation Comments Absolute Immature Granulocyte (auto (velasquez t code = Absolute Immature Granulocyte (auto) 0.02 0-0.1 [facility] HospitalWhite Blood Lbaqk6514-33-02 21:08:00* Test Item Value Reference Range Interpretation Comments White Blood Count (test code = 6690-2) 8.08 4.8-10.8 [facility] HospitalRed Blood Ixlir4646-71-07 21:08:00* Test Item Value Reference Range Interpretation Comments Red Blood Count (test code = 789-8) 4.74 3.6-5.1 [facility] HospitalHemoglobin2019-12-02 21:08:00* Test Item Value Reference Range Interpretation Comments Hemoglobin (test code = 10029-1) 15.6 12.0-16.0 [facility] HospitalHematocrit2019-12-02 21:08:00* Test Item Value Reference Range Interpretation Comments Hematocrit (test code = 4544-3) 45.9 34.2-44.1 H [facility] HospitalMean Corpuscular Qqbedd5501-70-09 21:08:00* Test Item Value Reference Range Interpretation Comments Mean Corpuscular Volume (test code = 787-2) 96.8 81-99 [facility] HospitalMean Corpuscular Xvikkfziis6919-26-33 21:08:00* Test Item Value Reference Range Interpretation Comments Mean Corpuscular Hemoglobin (test code = 785-6) 32.9 28-32 H [facility] HospitalMean Corpuscular Hemoglobin Concent 2019-01-22 21:08:00* Test Item Value Reference Range Interpretation Comments Mean Corpuscular Hemoglobin Concent (test code = 786-4) 34.0 31-35 [facility] HospitalRed Cell Distribution Flxol4952-27-81 21:08:00* Test Item Value Reference Range Interpretation Comments Red Cell Distribution Width (test code = 03278-9) 11.9 11.7 -14.4 [facility] HospitalPlatelet Plnqm7013-80-75 21:08:00* Test Item Value Reference Range Interpretation Comments Platelet Count (test code = 777-3) 177 140-360 [facility] HospitalNeutrophils (%) (Auto)2019-01-22 21:08:00 * Test Item Value Reference Range Interpretation Comments Neutrophils (%) (Auto) (test code = 62576-9) 52.1 38.7-80.0 [facility] HospitalLymphocytes (%) (Auto)2019-01-22 21:08:00 * Test Item Value Reference Range Interpretation Comments Lymphocytes (%) (Auto) (test code = 736-9) 41.0 18.0-39.1 H [facility] HospitalMonocytes (%) (Auto)2019-01-22 21:08:00* Test Item Value Reference Range Interpretation Comments Monocytes (%) (Auto) (test code = 5905-5) 5.3 4.4-11.3 [facility] HospitalEosinophils (%) (Auto)2019-01-22 21:08:00 * Test Item Value Reference Range Interpretation Comments Eosinophils (%) (Auto) (test code = 713-8) 1.2 0.0-6.0 [facility] HospitalBasophils (%) (Auto)2019-01-22 21:08:00* Test Item Value Reference Range Interpretation Comments Basophils (%) (Auto) (test code = 706-2) 0.2 0.0-1.0 [facility] HospitalIM GRANULOCYTES %2019-01-22 21:08:00* Test Item Value Reference Range Interpretation Comments IM GRANULOCYTES % (test code = IM GRANULOCYTES %) 0.2 0.0- 1.0 [facility] HospitalNeutrophils # (Auto)2019-01-22 21:08:00* Test Item Value Reference Range Interpretation Comments Neutrophils # (Auto) (test code = 751-8) 4.2 2.1-6.9 [facility] HospitalLymphocytes # (Auto)2019-01-22 21:08:00* Test Item Value Reference Range Interpretation Comments Lymphocytes # (Auto) (test code = 78418-8) 3.3 1.0-3.2 H [facility] HospitalMonocytes # (Auto)2019-01-22 21:08:00* Test Item Value Reference Range Interpretation Comments Monocytes # (Auto) (test code = 742-7) 0.4 0.2-0.8 [facility] HospitalEosinophils # (Auto)2019-01-22 21:08:00* Test Item Value Reference Range Interpretation Comments Eosinophils # (Auto) (test code = 711-2) 0.1 0.0-0.4 [facility] HospitalBasophils # (Auto)2019-01-22 21:08:00* Test Item Value Reference Range Interpretation Comments Basophils # (Auto) (test code = 704-7) 0.0 0.0-0.1 [facility] HospitalAbsolute Immature Granulocyte (auto 2019-01-22 21:08:00* Test Item Value Reference Range Interpretation Comments Absolute Immature Granulocyte (auto (velasquez t code = Absolute Immature Granulocyte (auto) 0.02 0-0.1 [facility] HospitalUrine GMN9574-83-50 19:48:00* Test Item Value Reference Range Interpretation Comments Urine WBC (test code = 5821-4) 11-20 0-5 H [facility] HospitalUrine ZHA8271-89-29 19:48:00* Test Item Value Reference Range Interpretation Comments Urine RBC (test code = 25426-6) 6-10 0-5 H [facility] HospitalUrine Gdtovznr2573-12-75 19:48:00* Test Item Value Reference Range Interpretation Comments Urine Bacteria (test code = 02951-9) MODERATE NONE H [facility] HospitalUrine Epithelial Lcvii8977-10-53 19:48:00 * Test Item Value Reference Range Interpretation Comments Urine Epithelial Cells (test code = 31276-4) MODERATE NONE [facility] HospitalUrine CVZ8864-03-81 19:48:00* Test Item Value Reference Range Interpretation Comments Urine WBC (test code = 5821-4) 11-20 0-5 H [facility] HospitalUrine ZBH5047-00-13 19:48:00* Test Item Value Reference Range Interpretation Comments Urine RBC (test code = 55316-4) 6-10 0-5 H [facility] HospitalUrine Hzilhgph3914-03-80 19:48:00* Test Item Value Reference Range Interpretation Comments Urine Bacteria (test code = 59952-6) MODERATE NONE H [facility] HospitalUrine Epithelial Rsbhm1161-77-82 19:48:00 * Test Item Value Reference Range Interpretation Comments Urine Epithelial Cells (test code = 74788-0) MODERATE NONE [facility] HospitalUrine Fjbsb5962-11-40 19:28:00* Test Item Value Reference Range Interpretation Comments Urine Color (test code = 5778-6) YELLOW YELLOW [facility] HospitalUrine Tonuwxq7120-00-13 19:28:00* Test Item Value Reference Range Interpretation Comments Urine Clarity (test code = 20824-1) SL CLOUDY CLEAR [facility] HospitalUrine Specific Aaclwuc8104-53-07 19:28:00 * Test Item Value Reference Range Interpretation Comments Urine Specific [place] (test code = 5811-5) 1.020 1.010-1.02 5 [facility] HospitalUrine cZ6439-40-62 19:28:00* Test Item Value Reference Range Interpretation Comments Urine pH (test code = 35981-6) 5.5 5-7 [facility] HospitalU[facility] Leukocyte Tgiscwwa1937-92-75 19:28:00* Test Item Value Reference Range Interpretation Comments Urine Leukocyte Esterase (test code = 76136-2) MODERATE NEGATIV E [facility] HospitalUrine Kjjcjyv0978-72-31 19:28:00* Test Item Value Reference Range Interpretation Comments Urine Nitrite (test code = 71736-1) NEGATIVE NEGATIVE [facility] HospitalUrine Mnsltjb1289-47-32 19:28:00* Test Item Value Reference Range Interpretation Comments Urine Protein (test code = 31793-6) NEGATIVE NEGATIVE [facility] HospitalUrine Glucose (UA)2019-01-22 19:28:00* Test Item Value Reference Range Interpretation Comments Urine Glucose (UA) (test code = 80514-4) NEGATIVE NEGATIVE [facility] HospitalUrine Wmbmtyl5894-95-03 19:28:00* Test Item Value Reference Range Interpretation Comments Urine Ketones (test code = 63342-7) NEGATIVE NEGATIVE [facility] Dfusrhlmubaz2957-03-40 19:28:00* Test Item Value Reference Range Interpretation Comments Urine Urobilinogen (test code = 13876-4) 0.2 0.2-1 [facility] Olpwukagy2604-87-80 19:28:00* Test Item Value Reference Range Interpretation Comments Urine Bilirubin (test code = 1977-8) NEGATIVE NEGATIVE [facility] Dgghn3060-33-04 19:28:00* Test Item Value Reference Range Interpretation Comments Urine Blood (test code = 49744-0) TRACE NEGATIVE [facility] HospitalU[facility] Apema7386-46-36 19:28:00* Test Item Value Reference Range Interpretation Comments Urine Color (test code = 5778-6) YELLOW YELLOW [facility] HospitalUrine Uxdrshc2775-62-20 19:28:00* Test Item Value Reference Range Interpretation Comments Urine Clarity (test code = 20559-4) SL CLOUDY CLEAR [facility] HospitalUrine Specific Qouqykz5370-38-08 19:28:00 * Test Item Value Reference Range Interpretation Comments Urine Specific [place] (test code = 5811-5) 1.020 1.010-1.02 5 [facility] HospitalUrine tQ5285-69-41 19:28:00* Test Item Value Reference Range Interpretation Comments Urine pH (test code = 75886-6) 5.5 5-7 [facility] HospitalU[facility] Leukocyte Euarxdkq6626-67-01 19:28:00* Test Item Value Reference Range Interpretation Comments Urine Leukocyte Esterase (test code = 69776-4) MODERATE NEGATIV E [facility] HospitalUrine Vkipous2483-37-34 19:28:00* Test Item Value Reference Range Interpretation Comments Urine Nitrite (test code = 73796-0) NEGATIVE NEGATIVE [facility] HospitalU[facility] Enmqcvd6640-05-00 19:28:00* Test Item Value Reference Range Interpretation Comments Urine Protein (test code = 55195-8) NEGATIVE NEGATIVE [facility] Glucose (UA)2019-01-22 19:28:00* Test Item Value Reference Range Interpretation Comments Urine Glucose (UA) (test code = 19534-3) NEGATIVE NEGATIVE [facility] Wqchuqi1394-36-27 19:28:00* Test Item Value Reference Range Interpretation Comments Urine Ketones (test code = 85953-7) NEGATIVE NEGATIVE [facility] Pyncvqnttdeg9640-43-45 19:28:00* Test Item Value Reference Range Interpretation Comments Urine Urobilinogen (test code = 01530-5) 0.2 0.2-1 [facility] HospitalU[facility] Ruwqjautu5930-29-29 19:28:00* Test Item Value Reference Range Interpretation Comments Urine Bilirubin (test code = 1977-8) NEGATIVE NEGATIVE [facility] Cmrpr9188-59-89 19:28:00* Test Item Value Reference Range Interpretation Comments Urine Blood (test code = 27898-4) TRACE NEGATIVE [facility] Dcec0563-90-71 19:27:00* Test Item Value Reference Range Interpretation Comments Urine Test (test code = 2106-3) NEGATIVE NEGATIVE [facility] Easr6922-80-39 19:27:00* Test Item Value Reference Range Interpretation Comments Urine Test (test code = 2106-3) NEGATIVE NEGATIVE [facility] HospitalU/S, NQYUMB7389-38-99 00:37:00Reason for exam:->LLQ painReason for exam:->post menopausal [...] Gallo Ayala Date/Time: 12/26/2017 00:37:52 Reading Location: [address] ading Room U/S, ENDOVAGINAL (EV)2017-12-26 00:37:00Reason [...] Verifneo rivero Date/Time: 12/26/2017 00:37:52 Reading Location: [facility] [address] [place] [address] ading Room U/S, DUPLEX, [id number] 00:37:00Reason for exam:->llq painReason for exam:->post menopausal [...] Ayalaepjenny Verified Date/Time: 12/26/2017 00:37:52 Reading Location: [address] Transitional Reading Room C METABOLIC [id number] 22:54:00* Test Item Value Reference Range Interpretation [...] APPLICABLE FOR DIALYSIS PATIENTS. RAPID STREP A DSBVIE8945-75-27 22:48:00* Test Item Value Reference Range Interpretation Comments STREP A ANTIGEN (BEAKER) (test code = 556) Negative Negative CBC W/PLT COUNT & AUTO JGARBQOODDAZ8617-74-91 22:44:00* Test Item Value Reference Range Interpretation [...] code = 2801) 0 % 0-1 SCREEN, FKJTN0973-07-14 22:12:00* Test Item Value Reference Range Interpretation Comments TEST URINE (BEAKER) (test code = 583) Negative CT, BRAIN, WITHOUT SNMPQWZW1081-88-08 22:09:00Reason for exam:->HEADACHEReason for exam:->SORE THROATFINAL REPORT [...] Ayala Verified Date/Time: 12/25/2017 22:09:31 Reading Location: [address] Reading Room ALYSIS W/ REFLEX URINE IYGQEAN7551-63-34 21:53:00* Test Item Value Reference Range Interpretation [...] SOURCE(BEAKER) (test code = 2795) CT, CTANGIO [id number] 03:35:00FINAL REPORT CT, CTANGIO BRAINBRAIN CT WITHOUT [...] MDReport Verified Date/Time: 06/04/2017 03:35:01 Reading Location: [address] Consult Reading Room C METABOLIC HYDER4763-02-45 02:14:00* Test Item Value Reference Range Interpretation [...] 413) 0 /100 WBC 0 -0 CT, [id number] 22:21:00Reason for exam:->ABDOMINAL PAINsince 12 pmReason for [...] Verified Date/Time: 02/25/2017 22:21:58 Les dudley Location: [facility] B1 C013Y [address] Body Reading Room C METABOLIC [id number] 21:11:00* Test Item Value Reference Range Interpretation [...] NOT APPLICABLE FOR DIALYSIS PATIENTS. HEPATIC FUNCTION [id number] 21:10:00* Test Item Value Reference Range Interpretation [...] code = 347) 85 U/L 5-50 H [id number] 21:10:00* Test Item Value Reference Range Interpretation Comments LIPASE (BEAKER) (test code = 749) 55 U/L 40-240 URINALYSIS W/ PRTAACUWDTD8598-60-14 21:00:00* Test Item Value Reference Range Interpretation [...] = 2795) CBC W/PLT COUNT & AUTO UEGAGVGIVEPG6287-88-67 20:56:00* Test Item Value Reference Range Interpretation [...] 417) 0.04 10e3/ L 0. 00-0.20 SCREEN, NEQNH9460-78-20 18:37:00* Test Item Value Reference Range Interpretation Comments TEST URINE (BEAKER) (test code = 583) Negative URINALYSIS W/ LIDQVLLCDII9073-89-26 18:32:00* Test Item Value Reference Range Interpretation [...] SOURCE(BEAKER) (test code = 2795) BASIC METABOLIC [id number] 18:31:00* Test Item Value Reference Range Interpretation [...] IS NOT APPLICABLE FOR DIALYSIS PATIENTS. ALKALINE EDBIDKQSHYE4415-64-16 18:30:00* Test Item Value Reference Range Interpretation Comments ALKALINE PHOSPHATASE (BEAKER) (test code = 346) 92 U/L 30-115 AST (SGOT)2016-09-06 18:30:00* Test Item Value Reference Range Interpretation Comments AST (SGOT) (BEAKER) (test code = 353) 35 U/L 5-40 ALT (SGPT)2016-09-06 18:30:00* Test Item Value Reference Range Interpretation Comments ALT (SGPT) (BEAKER) (test code = 347) 40 U/L 5-50 [id number] 18:30:00* Test Item Value Reference Range Interpretation Comments AMYLASE (BEAKER) (test code = 349) 48 U/L 30-110 [id number] 18:30:00* Test Item Value Reference Range Interpretation Comments LIPASE (BEAKER) (test code = 749) 32 U/L 40-240 L CBC W/PLT COUNT & AUTO [id number] 18:23:00* Test Item Value Reference Range Interpretation [...] = 417) 0.04 10e3/ L 0. 00-0.20 Moscmpbua7088-16-75 15:38:88042Ncbmfixx MqalrheUysmmbpgd8690-74-79 15:38:03918 [facility] UcrnpclAkayefunk1095-72-30 15:38:0040[facility] 2013-02-28 15:38:17833Clzsmdpr SjidvzqWipauqhyw2603-04-57 15:38:31507 MEQ/L [facility] DbbutybKcsjjbvim3491-49-78 15:38:004.2 [facility]/L[facility] 2013-02-28 15:38:000.5[facility] XqoegycKdyhgekkw6415-92-67 15:38:0010[facility] ZqsilwoXizyuhafx8136-41-74 15:38:00* Test Item Value Reference Range Interpretation Comments BUN/CREAT (test code = BUN/CREAT) 20 1 6-25 [facility] EdvrlclFgtnhomzg6969-71-37 15:38:004.4[facility] 2013-02-28 15:38:009.5[facility] PfubnzeKxjzklohv9967-04-28 15:38:0049[facility] PxsdlrzKrnrcfiyv2835-90-54 15:38:0017[facility] DqwzavpAbtselfqz4239-63-80 15:38:64551Gpwoickc ChmyhtrCbwkmohar8460-93-03 15:38:002.070[facility] Tvoeywqsus2267-59-04 15:38:0016.4[facility] JynpjpnGapkacsigh9722-91-60 15:38:00 47.9[facility] QtnapqxOnidsqcmgq2049-10-65 15:38:44013 K/CMMMemorial [facility] Vjkqjuzhdj6475-13-49 15:38:00Light YellowMemorial AygliykZndeuyhdhr8598-48-54 15:38:00ModerateMemorial EbgbvqdTkulbpivx7346-30-43 21:55:0018[facility] Jgpiazsxt2898-70-54 15:15:35705Uzxousjz SkujsqoLvaoykhnw0257-73-75 15:15:83075 [facility] FwifpryTgdgvtzbv8458-44-80 15:15:0037[facility] 2012-03-31 15:15:36983 MEQ/LMemorial MgnxtmlFennduqhs8140-41-48 15:15:004.1 MEQ/LMemorial XirpkgpBdjhumeej6801-23-00 15:15:000.5[facility] 2012-03-31 15:15:008[facility] VxzjzlmWdymszuit7369-36-08 15:15:00* Test Item Value Reference Range Interpretation Comments BUN/CREAT (test code = BUN/CREAT) 16 08-15 [facility] AhqfjttUcwvqsyls1102-45-21 15:15:004.9[facility] 2012-03-31 15:15:009.1[facility] FmdbwfrTpsplbxoz5622-24-38 15:15:0054[facility] IfddboyOgigjsfaf8728-97-80 15:15:0027[facility] AcxvyogXdkyisqwe1817-03-20 15:15:0097[facility] SdnikvdOwrtogdzd7352-17-19 15:15:002.230[facility] Rkrzmcbqt2341-79-22 15:15:07994Agxofmoo OkhzfhaEqtopapre4453-32-85 15:15:70821 [facility] VpsbinwDqexsjttv4769-66-99 15:15:0037[facility] 2012-03-31 15:15:34179 MEQ/LMemorial AgnosvhIxbuvuxsi0058-93-51 15:15:004.1 MEQ/LMemorial MjicnhmQqhcnmjyt1473-65-05 15:15:000.5[facility] 2012-03-31 15:15:008[facility] VbvyvbtPvreoynbl5770-04-97 15:15:00* Test Item Value Reference Range Interpretation Comments BUN/CREAT (test code = BUN/CREAT) 16 1 08-15 [facility] JeesmtwAtkvukegb3517-39-15 15:15:004.9[facility] 2012-03-31 15:15:009.1[facility] CdvykslFktuvrndg2982-69-91 15:15:0054[facility] HxgvnegLtfqaqtbd0167-16-95 15:15:0027[facility] AjvwjpdHtjhcoygr8738-89-37 15:15:0097[facility] MdrisznXovetjesr2183-66-69 15:15:002.230[facility] Ictyjulzr9581-17-56 15:15:43213Loofpdva SliwgqhVzlnvexdr8076-45-77 15:15:37010 [facility] FonsnsjQqwmujekf3594-63-39 15:15:0037[facility] 2012-03-31 15:15:0091[facility] LjvtkslPxjgrclmx2244-62-27 15:15:00111 MEQ/L [facility] XvhllgzDhwzzssst0805-80-79 15:15:004.1 MEQ/L[facility] 2012-03-31 15:15:000.5[facility] ZfbicbvHtbciipqw1827-84-70 15:15:008[facility] QrzgotbPaowcrfln6992-37-88 15:15:00* Test Item Value Reference Range Interpretation Comments BUN/CREAT (test code = BUN/CREAT) 16 1 6-25 [facility] TkgnqeoOiutzlmyk0693-15-26 15:15:004.9[facility] 2012-03-31 15:15:009.1[facility] FqpevdzHvjtyxahy7725-39-47 15:15:0054[facility] LzykmcyRqeojatbu6543-29-48 15:15:0027[facility] YqfqedoIzblbamah3083-47-60 15:15:0097[facility] AryhulbFhcwulpmw1562-01-13 15:15:002.230[facility] Cgjjpnbgmk1967-99-57 15:15:0016.0[facility] SotdtmkFovblsidmf0420-83-98 15:15:00 47.9[facility] TvizpcdKzspzacapm7933-19-13 15:15:20172 K/CMMMem[facility] Ssdtdjaktf9757-01-81 15:15:0016.0[facility] BqemhlhHlmerhekho3719-27-81 15:15:00 47.9[facility] AwuoovtRjlkekqcva7380-20-85 15:15:48817 K/CMMM[facility] Digmgovlun0016-34-72 15:15:0016.0[facility] XdjxgfeAmvfzfvqxb9539-35-33 15:15:00 47.9[facility] VxxdnceUqddaegquz2101-63-36 15:15:26557 K/CMMMemorial [facility] Ahnjxrgriz1400-13-16 15:15:00Light YellowMemorial KszaualTyyrbimjla8450-79-89 15:15:00FewMemorial ZjafthkWvsuueqhgb6275-71-91 15:15:00Light YellowMemorial WdxiwxlTgidyrkvpd8866-55-48 15:15:00FewMemorial YsxyqlrOwpsfdaggv7870-43-72 15:15:00Light YellowMemorial CxrhpqfEtfzooxxnc2885-37-68 15:15:00FewMemorial NyxrslfPfdpsiqbn1255-00-70 16:38:26042Jpfmvzfd KanvhxaZucxrdtuy3109-73-14 16:38:0072[facility] AzmexkwQeophfhgf4290-76-88 16:38:0035[facility] Mekxmbreb4586-05-94 16:38:93757Kddcxmcn TiqtvyfGwkkgwgsr2886-96-47 16:38:573396 [facility] CpsustnTbtcqwqcy2341-18-19 16:38:006.4[facility] 2007-12-28 16:38:001.800[facility] FfdlgdlGxxdamwox2000-40-58 16:38:91413Rysnfhqb CyhrcvpLlhxxeiqn8436-90-74 16:38:0072Mem[facility] IpaxjwhXcoismcel0385-46-69 16:38:0035[facility] LwbrtbgOgzvhlcdg9253-84-39 16:38:37094Mydvzyis Shine Tqoeezmrw6554-53-53 16:38:516936Tlidpiyo WudfrcoZlallpgfa6146-93-71 16:38:006.4 [facility] PhcmbowIgfzziliq8420-77-99 16:38:001.800[facility] HermannUrinalysis 2007-12-28 16:38:00YellowMemorial VfrmpixPzmpshbflm4030-59-38 16:38:00Many [facility] FpwqhqoNhycrlonvl0504-63-76 16:38:00YellowMemorial HermannUrinalysis 2007-12-28 16:38:00ManyMemorial XbmewssMyltnigag0515-81-83 16:45:0017[facility] MqljxevEleurlvpc7226-47-88 16:45:37799Zqfupoxy KfmnyjhTvzebgsfm5355-46-12 16:45:004.2[facility] YdbowufZdnrwcrnp1522-56-34 16:45:007[facility] Aktbehxir3021-73-96 16:45:000.6[facility] InnohcvFlzkvgtpz4302-26-78 16:45:00* Test Item Value Reference Range Interpretation Comments BUN/CREAT (test code = BUN/CREAT) 12 08-15 [facility] IzwtbrhPysoclrui8853-12-90 16:45:004.2[facility] 2007-12-14 16:45:009.1[facility] OxvgripVqgovowxu2927-31-88 16:45:0021[facility] RivpkykAtwgoyoof1507-66-42 16:45:0030[facility] XphxtevBsnzwdgup5245-21-37 16:45:0063[facility] ZqpybfoCsrmkpicot5371-87-13 16:45:0015.1[facility] Stovzidnkj9608-74-14 16:45:0043.3[facility] SggmvhuJvotsnqkxs8993-58-72 16:45:00 302 K/CMMMemorial UrilyzvCdrotegr5157-99-35 16:45:00* Test Item Value Reference Range Interpretation Comments HELICOB IGG (test code = HELICOB IGG) 3.0 1 <=0.9 [facility] WnreizxXivfbtqljb4292-15-35 16:45:00YellowMemorial HermannUrinalysis 2007-12-14 16:45:00[facility]ellowMem[facility]lejo
--- NOTE | 2020-01-12 12:17 | History and Physical ---
CHIEF COMPLAINT: Abdominal pain. HISTORY OF PRESENT ILLNESS: Ms. De La Cruz is a 54-year-old female. She came into the emergency room with complaints of abdominal pain, which is diffuse, mostly epigastric, radiating to the back, has been going on for a few days. She reports mild nausea with it and she still was able to pass gas and had bowel movement for the last few days. She denies any chest pain, focal weakness, headache. REVIEW OF SYSTEMS: GENERAL: Denies any fever or chills. HEAD: Denies any head trauma. ENT: Denies any earache. CVS: Denies any chest pain. RESPIRATORY: Denies any shortness of breath. GI: Nausea. No abdominal pain. The rest of the review of systems are negative except as in HPI. 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 This was in 2008. Gallbladder cholecystectomy in 1997. FAMILY AND SOCIAL HISTORY: She does not smoke. Does not drink. 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 PHYSICAL EXAMINATION: VITAL SIGNS: Temperature 98.3, pulse of 52, blood pressure 112/60, respiratory rate of 18, O2 saturation 99%. HEENT: Head atraumatic, normocephalic. NECK: Supple. CHEST: Clear to auscultation bilaterally. No wheezing. HEART: S1, S2 audible. ABDOMEN: Soft. EXTREMITIES: No pedal edema. NEUROLOGIC: Awake and alert. LABORATORY DATA: Labs reviewed. CT of the abdomen showing partial small-bowel obstruction. ASSESSMENT/PLAN: Ms. De La Cruz is a 54-year-old female with abdominal pain. CT showing partial small-bowel obstruction. Consult Surgery. Once cleared by General Surgery, the patient can be discharged home. MD FRANKO Ya/ALEXIS /[id number]
--- NOTE | 2020-01-12 13:15 | NUR ---
R1 LOC DETERMINATION: PCTX case account ending in 8211 has been reviewed and completed by PAS Physicians. Service Line: Level of Care (LOC) / Admission Status Review Initial patient type was submitted as: IO - Initial Observation PAS Recommendation: OU
[2020-01-12] MEDS: PIPER-TAZ 3.375 GM 50 ML IV SCH (18:37)
--- NOTE | 2020-01-12 19:00 | NUR ---
RECEIVED PATIENT IN BEDSIDE SHIFT REPORT. PATIENT RESTING IN BED AT THIS TIME, MODERATE PAIN REPORTED, WILL MEDICATE. NO S&S OF DISTRESS NOTED. IV TO R AC 20G ASYMPTOMATIC, RUNNING NS @ 125ML/HR. BED LOCKED IN LOWEST POSITION, SIDE RAILS UPX2, CALL LIGHT IN REACH.
--- NOTE | 2020-01-12 21:50 | NUR ---
RECEIVED REPORT FROM PREVIOUS NURSE. CALL LIGHT WITHIN REACH. PATIENT IN BED. PATIENT IS A&OX3
[2020-01-13] VITALS (8 sets, daily range): BP systolic 101–164; BP diastolic 47–83
[2020-01-13] MEDS: PIPER-TAZ 3.375 GM 50 ML IV SCH ×5 (06:09→23:32)
--- NOTE | 2020-01-13 07:07 | NUR ---
GAVE BEDSIDE SHIFT REPORT TO ONCOMING NURSE. CALL LIGHT WITHIN REACH. PATIENT IN BED. HOURLY ROUNDING PERFORMED.
[2020-01-13] MEDS: SODIUM CHLORIDE 0.9% 1000ML 1,000 ML IV SCH ×2 (08:02→17:58)
--- NOTE | 2020-01-13 08:14 | Diagnostic Imaging Report ---
EXAM: Abdomen Radiograph 1 View(s) INDICATION: ^partial sbo ^[id number] ^[id number] COMPARISON: None FINDINGS: The lungs are clear with no focal consolidation, pleural effusion or pneumothorax. The cardiac mediastinal silhouette is within normal limits. The thoracic osseous structures are normal. Nonobstructive bowel gas pattern. Small stool burden throughout the colon. Status post cholecystectomy with clips in the right upper quadrant. The osseous structures are normal. No abnormal calcification. IMPRESSION: No evidence of bowel obstruction. Signed by: Carlie Walters MD on 01/13/2020 8:11 AM
[2020-01-13] MEDS: PANTOPRAZOLE 40 MG 10ML VIAL IV SCH (09:45)
[2020-01-13] MEDS ORDERED: PANTOPRAZOLE SO40 MG PO (12:25)
[2020-01-13] MEDS ORDERED: [UNRECOGNIZED DRUG - OTHER] PO (12:26)
[2020-01-13] MEDS ORDERED: CITRUCEL500 MG PO (12:56)
[2020-01-13] MEDS: MORPHINE SULFATE INJ 4 MG/ML INJ 1ML IV PRN (13:23)
[2020-01-13] MEDS: ONDANSETRON HCL INJ 2MG/ML 2ML 2 MG/ML VIAL IV PRN (13:23)
[2020-01-13] MEDS ORDERED: PROMETHAZINE HCL 25 MG TAB PO PRN (16:45)
[2020-01-13] MEDS ORDERED: ACETAMINOPHEN/CODEINE 300MG - 30MG TAB PO PRN (17:30)
[2020-01-13] MEDS ORDERED: CITRATE OF MAGNESIA 300ML BOTTLE PO ONE (17:30)
[2020-01-13] MEDS ORDERED: COLACE100 MG PO (17:45)
[2020-01-13] MEDS ORDERED: MAGNESIUM CITR296 ML PO (17:46)
[2020-01-13] MEDS: DOCUSATE SODIUM LIQD 100 MG/10 ML UDC NG SCH (17:47)
--- NOTE | 2020-01-13 18:36 | Discharge Summary ---
Patient of Dr. Petersen and Dr. Cornejo. HOSPITAL COURSE: A [facility] 54-year-old woman, admitted with abdominal pain, found to have small bowel obstruction. It is improved by the next day. She has a history of gallbladder disease and cholecystitis. History of pulmonary embolus in the past in the brain and surgery for an aneurysm. The abdominal pain improved. No evidence of bowel obstruction the next day and she is to be discharged with Dr. Petersen with evidence of diverticula and Citrucel was recommended and discharge is pending surgical clearance. cONSTIPATION WAS ALSO FELT TO BE AN ISSUE. a LAXATIVE PROGRAM WAS RECOMMENDED. fOLLOW UP WITH DR Freitas and Dr Petersen MD MICAH Read/ALEXIS /[id number] MTDD
--- NOTE | 2020-01-13 19:05 | NUR ---
RECEIVED BEDSIDE SHIFT REPORT FROM PREVIOUS NURSE. CALL LIGHT WITHIN REACH. PATIENT IN BED. Addendum: 01/13/20 at 2229 by Rylie Parrish RN AT THE BEDSIDE.
--- NOTE | 2020-01-13 20:32 | Consultation ---
DATE OF CONSULTATION: 01/13/2020 GI Consult Note. REASON FOR CONSULT: Partial small bowel obstruction. HISTORY OF PRESENTING ILLNESS: A 54 years old female who is a patient of my associate Dr. Romano. She got admitted with acute onset of abdominal pain with some nausea without vomiting. In the emergency room, she was noted to be hemodynamically stable. CT scan of the abdomen and pelvis without contrast was suggestive of partial small bowel obstruction. The patient got admitted. Currently being treated conservatively with n.p.o. and IV fluid. Blood work also revealed normal electrolytes and white count. It is not clear why she is being given intravenous antibiotic. By the time I saw the patient today, she is hungry and would like to eat. She has not passed any flatus. Abdominal x-ray done today showed a stool burden without any obstructive bowel gas pattern. She has been given Ancef. She is hungry and would like to eat food. REVIEW OF SYSTEMS: Twelve-point system reviewed. Symptomatology is limited to GI system. PAST MEDICAL HISTORY: GERD, constipation. PAST SURGICAL HISTORY: Cholecystectomy. 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 SOCIAL HISTORY: No smoking, alcohol, or any illicit drug use. ALLERGIES: NONE. HOME MEDICATIONS: Docusate, magnesium citrate, methyl cellulose, pantoprazole, Tylenol. INPATIENT MEDICATIONS: List reviewed. She is getting intravenous piperacillin along with other medications. PHYSICAL EXAMINATION: VITAL SIGNS: Temperature 98.7, pulse 59, respirations 16, blood pressure 138/53, oxygen saturation 98% on room air. GENERAL: Not in any apparent distress. HEENT: Moist mucous membranes. Anicteric sclerae. CVS: S1 and S2 regular. LUNGS: Bilaterally grossly clear. ABDOMEN: Soft, nondistended, nontender. No palpable mass or hernia. Positive bowel sounds (bowel sounds are not hyperactive). EXTREMITIES: Warm. No leg edema. LABORATORY DATA: WBC 8.41, hemoglobin 15.1, hematocrit 43.9, MCV 97.1, platelet count 168. Electrolytes showed a sodium of 142, potassium 4.2, chloride 111, bicarb 25, BUN 15, creatinine 0.69, glucose 143. Liver enzymes normal. COVID-19 negative. Acute abdominal series showed no evidence of bowel obstruction, small stool burden throughout the colon status post cholecystectomy. CT scan of the abdomen and pelvis without contrast showed mildly dilated loops of small bowel measuring up to 3.1 cm with air-fluid levels. Constellation of findings are highly suspicious for partly small bowel obstruction. No clear transition point identified. IMPRESSION: Clinically, the patient does not have any small-bowel obstruction. KUB series today showed constipation with the stool burden in colon. PLAN: Allow oral feeds, bowel regimen. Discontinue antibiotic. Surgery has already seen the patient. The patient can be discharged home from GI standpoint. She can follow up with Dr. Romano in his office in a week or two. Christophe Elizabeth MD SA/ALEXIS /[id number]
[2020-01-14 01:00] VITALS: BP 146/60
--- NOTE | 2020-01-14 05:00 | NUR ---
IV WITH CATH WAS REMOVED BY PATIENT
--- NOTE | 2020-01-14 05:10 | NUR ---
NEW IV PLACED ON PATIENT
[2020-01-14] MEDS: SODIUM CHLORIDE 0.9% 1000ML 1,000 ML IV SCH (05:14)
[2020-01-14] MEDS: PIPER-TAZ 3.375 GM 50 ML IV SCH (05:14)
[2020-01-14 05:27] VITALS: BP 106/52
--- NOTE | 2020-01-14 06:55 | NUR ---
GAVE BEDSIDE SHIFT REPORT TO ONCOMING NURSE. CALL LIGHT WITHIN REACH. PATIENT IN BED. HOURLY ROUNDING PERFORMED.
--- NOTE | 2020-01-14 07:00 | NUR ---
RECEIVED PATIENT RESTING IN BED NO S/S OF DISTRESS. BED LOW, WHEELS LOCKED, SIDE RAILS X2. CALL LIGHT IN REACH WILL CONTINUE TO MONITOR.
[2020-01-14 08:07] VITALS: BP 111/52
[2020-01-14] MEDS: DOCUSATE SODIUM LIQD 100 MG/10 ML UDC NG SCH (08:10)
[2020-01-14] MEDS: PANTOPRAZOLE 40 MG 10ML VIAL IV SCH (08:10)
[2020-01-14 08:13] VITALS: BP 111/52
--- NOTE | 2020-01-14 10:00 | NUR ---
Removed patients IV. Catheter tip intact and pressure dressing applied.
--- NOTE | 2020-01-14 10:15 | NUR ---
Patient discharged from facility. Patient gathered all personal belongings, discharge instructions and follow up information.
== END 2020-01-14 10:15 | disposition home or self-care (01) ==
LOC: FSED 20:05 → ERHOLD 22:35 → MED/SURG 01-12 00:48
PROVIDERS: ADMIT Internal Medicine; ATTEND Internal Medicine
DX: K56.600 Partial intestinal obstruction, unspecified as to cause (principal); Z20.828 Contact with and (suspected) exposure to other viral communicable diseases; Z86.79 Personal history of other diseases of the circulatory system
CPT/HCPCS: 36415; 74022; 74176; 80053 ×2; 81003; 83735; 85025 ×2; 96374; 96375; 96376; 99284; C9113 ×2; G0378 ×4; J1885; J2270 ×2; J2405 ×3; J2543 ×3; J7030 ×4; U0002

== ENCOUNTER 2021-04-26 15:21 | Emergency (ER) | payer BC ==
[~2021-04-26] VITALS: Ht 157.5 cm; Wt 79.5 kg
[~2021-04-26 15:21] MED LIST: CITRUCEL500 MG PO; COLACE100 MG PO; MAGNESIUM CITR296 ML PO; PANTOPRAZOLE SO40 MG PO; [UNRECOGNIZED DRUG - OTHER] PO
[2021-04-26] MEDS ORDERED: FAMOTIDINE 20 MG/2 ML VIAL IV ONE ×2 (15:45→16:17)
[2021-04-26] MEDS ORDERED: ONDANSETRON HCL INJ 2MG/ML 2ML 2 MG/ML VIAL IV ONE (15:45)
[2021-04-26] MEDS ORDERED: KETOROLAC TROMETHAMINE 30 MG/ML VIAL IV ONE (15:45)
[2021-04-26] MEDS ORDERED: KETOROLAC TROMETHAMINE 30 MG/ML VIAL ONE (16:17)
[2021-04-26] MEDS ORDERED: ONDANSETRON HCL INJ 2MG/ML 2ML 2 MG/ML VIAL ONE (16:17)
[2021-04-26] MEDS ORDERED: FIORICET 50-301 EACH PO (16:47)
[2021-04-26] MEDS ORDERED: ONDANSETRON ODT4 MG PO (16:47)
== END 2021-04-26 17:18 | disposition home or self-care (01) ==
LOC: FSED 15:30
DX: R51.9 Headache, unspecified (principal); Z86.79 Personal history of other diseases of the circulatory system; Z87.19 Personal history of other diseases of the digestive system
CPT/HCPCS: 70450; 80053; 81003; 85025; 96374; 96375; 99284; J1885; J2405

== ENCOUNTER 2022-12-15 12:20 | Emergency (ER) | payer BC ==
[~2022-12-15] VITALS: Ht 157.5 cm; Wt 79.4 kg
[~2022-12-15 12:20] MED LIST changes: +FIORICET 50-301 EACH PO; +ONDANSETRON ODT4 MG PO
[2022-12-15] MEDS ORDERED: ACETAMINOPHEN 325 MG TAB PO ONE (13:00)
[2022-12-15] MEDS ORDERED: SODIUM CHLORIDE 0.9% 1000ML 1,000 ML IV ONE (13:00)
[2022-12-15] MEDS ORDERED: MECLIZINE HCL 12.5 MG TAB ONE (13:16)
[2022-12-15] MEDS ORDERED: SODIUM CHLORIDE 0.9% 1000ML 1,000 ML ONE (13:16)
[2022-12-15] MEDS ORDERED: ACETAMINOPHEN 325 MG TAB ONE (13:17)
[2022-12-15] MEDS ORDERED: MECLIZINE HCL 12.5 MG TAB PO ONE (13:30)
[2022-12-15] MEDS ORDERED: DIPHENHYDRAMINE HCL INJ 50 MG/ML VIAL IV ONE (13:45)
[2022-12-15] MEDS ORDERED: METOCLOPRAMIDE HCL 10 MG/2ML VIAL IV ONE (13:45)
[2022-12-15] MEDS ORDERED: DEXAMETHASONE SOD PHOS INJ 4 MG/ML SDV IV ONE (14:00)
[2022-12-15] MEDS ORDERED: DEXAMETHASONE SOD PHOS INJ 4 MG/ML SDV ONE (14:10)
[2022-12-15] MEDS ORDERED: DIPHENHYDRAMINE HCL INJ 50 MG/ML VIAL ONE (14:11)
[2022-12-15] MEDS ORDERED: METOCLOPRAMIDE HCL 10 MG/2ML VIAL ONE (14:11)
[2022-12-15 15:13] VITALS: O2SAT 97
[2022-12-15] MEDS ORDERED: ONDANSETRON ODT4 MG PO (15:27)
[2022-12-15] MEDS ORDERED: CEFUROXIME500 MG PO (15:28)
[2022-12-15] MEDS ORDERED: PYRIDIUM200 MG PO (15:29)
== END 2022-12-15 15:59 | disposition home or self-care (01) ==
LOC: FSED 12:30
DX: R42 Dizziness and giddiness (principal); R51.9 Headache, unspecified; N39.0 Urinary tract infection, site not specified; I10 Essential (primary) hypertension; E11.9 Type 2 diabetes mellitus without complications
CPT/HCPCS: 70450; 80053; 81003; 82553; 84484; 85025; 99284; J1100; J1200; J2765; J7030; J8597; 93005